=== PATIENT | male | born 1960 | race Caucasian/White ===

== ENCOUNTER → 2021-01-12 08:08 | Outpatient (CLI) | payer BC, SELFPAY ==
[2021-01-12] MEDS: COVID-19 VACC #1, MRNA(MOD) 100 MCG/0.5 ML VIAL IM (08:20)
== END ==
PROVIDERS: Visit Provider Internal Medicine
DX: Z23 Encounter for immunization (principal)
CPT/HCPCS: 0011A; 91301

== ENCOUNTER → 2021-02-09 08:10 | Outpatient (CLI) | payer OTHER, SELFPAY ==
[2021-02-09] MEDS: COVID-19 VACC #2, MRNA(MOD) 100 MCG/0.5 ML VIAL IM (08:16)
== END ==
PROVIDERS: Visit Provider Internal Medicine
DX: Z23 Encounter for immunization (principal)
CPT/HCPCS: 0012A; 91301

== ENCOUNTER → 2022-12-29 10:11 | Outpatient (CLI) | payer OTHER, SELFPAY ==
[2022-12-29 13:33] LABS: Creatinine Urine Random 55.2 mg/dL
[2022-12-29 13:44] LABS: Alanine Aminotransferase 37 IU/L (<50); Albumin 4.5 g/dL (3.5-5.0); Albumin Globulin Ratio 1.5 (1.0-2.8); Alkaline Phosphatase 66 U/L (38-126); Aspartate Aminotransferase 30 IU/L (17-59); Bilirubin Total 0.8 mg/dL (0.2-1.3); Blood Urea Nitrogen 15 mg/dL (9-20); Calcium 9.2 mg/dL (8.4-10.2); Carbon Dioxide 30 mmol/L (22-32); Chloride 94 mmol/L (98-107); Cholesterol 213 mg/dL (140-199); Estimated Glomerular Filt Rate > 60 mL/min (>60); Glucose 83 mg/dL (80-110); HDL Cholesterol 56 mg/dL (40-60); HEMOLYSIS < 15 (0-50); LDL Cholesterol Calculated 131 mg/dL (<100); Potassium 3.8 mmol/L (3.4-5.1); Sodium 134 mmol/L (137-145); Total Protein 7.5 g/dL (6.3-8.2); Triglycerides 130 mg/dL (35-150)
[2022-12-29 14:08] LABS: Prostate Specific Antigen Scrn 1.21 ng/mL (0.1-4.0)
[2022-12-29 14:16] LABS: Microalbumin Urine Random < 0.6 mg/dL (0-1.6)
== END ==
PROVIDERS: PCP Family Medicine; Referring Provider Family Medicine; Visit Provider Family Medicine
DX: R03.0 Elevated blood-pressure reading, without diagnosis of hypertension (principal); Z00.00 Encounter for general adult medical examination without abnormal findings; Z12.5 Encounter for screening for malignant neoplasm of prostate
CPT/HCPCS: 36415; 80053; 80061; 82043; 82570; G0103

== ENCOUNTER 2023-02-13 10:39 | Day surgery (SDC) | payer OTHER, SELFPAY ==
--- NOTE | 2023-02-13 | PATH_ITS ---
[facility] Accession Number: [id number] No. of containers..02 Tissue . 01 Material submitted: . PART A: colon - TRANSVERSE POLYP PART B: rectum - RECTAL POLYP . 01 Diagnosis: A. Transverse Colon, Polyp, Biopsy: Tubular adenoma. . B. Rectum, Polyp, Biopsy: Tubular adenoma. MRV 02/20/2023 1520 Local . 01 Electronically signed: . Erin Klein MD, Pathologist NPI- [id number] . 01 Gross description: . Part A: TRANSVERSE POLYP: Received in formalin is 1 fragment(s) of alvarez, soft tissue measuring 0.3 x 0.3 x 0.3 cm submitted entirely in 1 cassette(s) Part B: RECTAL POLYP: Received in formalin is 1 fragment(s) of alvarez, soft tissue measuring 0.4 x 0.3 x 0.2 cm submitted entirely in 1 cassette(s) /MADELAINE 02/15/2023 2258 Local . 01 Pathologist provided ICD-10: D12.3, D12.8 . 01 CPT . 358378, [id number] Specimen Comment: A courtesy copy of this report has been sent to [phone] Performed at: 01 [facility] [address] [place] [address] [address] [facility], [place], [place] [id number] MD Kang Gonzalez MD Phone: [phone]
[2023-02-13] MEDS: LACTATED RINGERS 1,000 ML 200 ML IV (12:38)
[2023-02-13 12:41] VITALS: BP 129/76; PULSE 177; RESP 18; TEMP 36.1; O2SAT 98; BMI 22.8
--- NOTE | 2023-02-13 13:32 | PM.HP.1 ---
History of Present Illness History of Present Illness Date Patient Seen: 02/13/23 Time Patient Seen: 13:32 Chief complaint: Colonoscopy Narrative: The patient presents for colorectal screening. They have never had any previous examination for such. No personal or family history of colon cancer. On further history denies any recent gastrointestinal symptoms. No nausea, vomiting, abdominal pain, loss of appetite, unexplained weight loss, change in bowel habits, or blood per rectum. PFSH Medical History (Updated 12/27/22 @ 14:47 by Gaby Mancini DO) Wears glasses Surgical History (Updated 12/25/22 @ 19:55 by Aviva Ojeda) Anesthesia History of knee surgery (~1974) [facility] [place] teeth removed (~1980) Family History (Updated 12/25/22 @ 19:56 by Aviva Ojeda) Father History of heart disease Mother Diabetes mellitus Social History household members: spouse and other Smoking Status: Former smoker Tobacco: How many years used: 10 second hand exposure: No alcohol intake: current substance use type: does not use Meds Home Medications and Allergies Home Medications Medication Instructions Recorded Confirmed Type multivitamin 1 tab PO DAILY 12/27/22 12/27/22 History Allergies Allergy/AdvReac Type Severity Reaction Status Date / Time No Known Drug Allergies Allergy Verified 02/13/23 13:05 Exam Vital Signs (past 8 hours): - 02/13/23 12:41 Temperature 97 F L Pulse Rate 177 H Respiratory Rate 18 Blood Pressure 129/76 Pulse Oximetry 98 Oxygen Delivery Method Room Air Oxygen Delivery Method Room Air Narrative Exam Narrative: General adult man alert oriented no acute distress Assessment & Plan Assessment & Plan narrative: The patient requires colorectal screening and colonoscopy is recommended. Technical details were discussed. Risks, benefits, alternatives explained. Risks including but not limited to myocardial infarction, aspiration, bleeding, pain, missed lesion, incomplete examination, need for further radiographic studies, colonic perforation, and need for major abdominal surgery were discussed. All questions were answered to their satisfaction, and they are in agreement with this plan.
[2023-02-13 13:59] VITALS: BP 96/70; PULSE 64; RESP 12; TEMP 36.1; O2SAT 94
--- NOTE | 2023-02-13 14:00 | PM.OP.COLON ---
Operative Date/Time/Diagnoses Date of procedure: 02/13/23 Time of procedure: 14:00 Pre-op diagnosis: Colorectal screening Post-op diagnosis: other (Colonic polyps x2) Procedure & Clinicians Study performed: Colonoscopy Same procedure as scheduled: Yes Indications: Colorectal screening Surgeon: Parth Madrigal Procedure Notes Procedure in detail: The history and physical was performed/updated and the patient is ASA class is 2. The procedure was discussed in detail with the patient. Potential risks complications including infection, bleeding, missed diagnosis, perforation, need for surgery, and were explained. Their questions were answered and informed consent was obtained. Patient was brought to the procedure room and placed standard monitoring equipment. The patient's vital signs were monitored continuously throughout the entire procedure. Prior to starting time-out was performed. The patient was placed in the left lateral recumbent position. Procedural sedation was administered by anesthesia. Examination began with a thorough inspection of the perianal area there was no evidence of fissures, fistulae, external hemorrhoids or cutaneous malignancy. The colonoscopy scope was then placed into the anal canal and was advanced to the cecum, which was identified by the ileocecal valve, the appendiceal orifice and the confluence of the taenia. The scope was then slowly withdrawn examining colon thoroughly in all directions, irrigating it of any residual stool. Within the transverse colon there was a 5 mm flat polyp which was removed with biopsy forceps. In the proximal rectum 3 mm pedunculated polyp removed with forceps. The colon was otherwise unremarkable. The patient tolerated the procedure well. They will be discharged once criteria are met. The prep was of good/excellent quality. The withdrawl time was10 minutes. Specimen(s): other (Transverse and rectal polyps) Impression: Colonic polyps x2 Post-procedure Recommendations: High fiber diet Plan for aftercare: Follow-up is dependent on pathology findings Disposition: same day surgery
[2023-02-13 14:01] VITALS: BP 96/70; PULSE 63; RESP 18; O2SAT 94
[2023-02-13 14:11] VITALS: BP 103/77; PULSE 66; RESP 12; TEMP 37; O2SAT 96
[2023-02-13 14:13] VITALS: BP 101/74; PULSE 69; RESP 15; TEMP 36.9; O2SAT 96
== END 2023-02-13 14:31 | disposition home or self-care (01) ==
PROVIDERS: PCP Family Medicine; Referring Provider Surgery; Visit Provider Surgery
PROC: 0DJD8ZZ Inspection of Lower Intestinal Tract, Via Natural or Artificial Opening Endoscopic (ICD-10-PCS; CPT 45378; principal; 2023-02-13 11:45)
DX: Z12.11 Encounter for screening for malignant neoplasm of colon (principal); D12.3 Benign neoplasm of transverse colon; D12.8 Benign neoplasm of rectum
CPT/HCPCS: 45380; J2704

== ENCOUNTER → 2025-07-14 16:17 | Outpatient (CLI) | payer MEDICARE, SELFPAY ==
--- NOTE | 2025-07-14 16:20 | DI.RAD.S_ITS ---
PROCEDURE: XR CHEST 2V INDICATIONS: r/o pneumonia, nodule TECHNIQUE: 2 views of the chest were acquired. COMPARISON: None. FINDINGS: Heart, mediastinum and pulmonary vascular: Heart is normal in size and configuration. Mediastinum is unremarkable. Pulmonary vascular is normal. Lungs: Bronchi or asthma noted. Possible infiltrate right middle lobe Pleural spaces: Normal-no effusions or pneumothorax. Bones and soft tissues: Normal IMPRESSION: Possible right middle lobe infiltrate developing. Bronchitis or asthma Dictated by: Richardson Remy M.D. on 07/15/2025 at 10:50 Approved by: Richardson Remy M.D. on 07/15/2025 at 10:51
== END ==
PROVIDERS: PCP Family Medicine; Referring Provider Family Medicine; Visit Provider Family Medicine
DX: R05.9 Cough, unspecified (principal)
CPT/HCPCS: 71046

== ENCOUNTER → 2025-08-05 12:28 | Outpatient (CLI) | payer MEDICARE, SELFPAY ==
--- NOTE | 2025-08-05 12:30 | DI.RAD.S_ITS ---
PROCEDURE: XR CHEST 2V INDICATIONS: recheck infiltrate TECHNIQUE: 2 views of the chest were acquired. COMPARISON: [facility], CR, XR CHEST 2V, 07/14/2025, 16:14. FINDINGS: Surgical changes and devices: None. Lungs and pleura: Lungs are clear. No pleural effusions or pneumothorax. Mediastinum: Mediastinal contours are normal. Heart size is normal. Bones and chest wall: No suspicious bony abnormalities. Soft tissues appear unremarkable. IMPRESSION: No acute cardiopulmonary abnormality is seen. Dictated by: Lamine Aviles M.D. on 08/05/2025 at 20:44 Approved by: Lamine Aviles M.D. on 08/05/2025 at 20:44
== END ==
PROVIDERS: PCP Family Medicine; Referring Provider Family Medicine; Visit Provider Family Medicine
DX: R05.9 Cough, unspecified (principal); R93.89 Abnormal findings on diagnostic imaging of other specified body structures
CPT/HCPCS: 71046

== ENCOUNTER 2025-08-17 20:29 | Observation (INO) | payer MEDICARE, SELFPAY ==
[2025-08-17] VITALS (12 sets, daily range): BP systolic 91–169; BP diastolic 60–99; PULSE 83–110; RESP 14–30; TEMP 36.6; O2SAT 85–94; BMI 22.1
[2025-08-17] MEDS: ALBUTEROL/IPRATROPIUM 3 ML AMPUL 6 ML INH (21:00)
--- NOTE | 2025-08-17 21:04 | DI.RAD.S_ITS ---
PROCEDURE: XR CHEST 1V
--- NOTE | 2025-08-17 21:04 | ED_ITS ---
HPI - General Adult
--- NOTE | 2025-08-17 21:04 | ED.GENADULT ---
HPI - General Adult <Aileen Walker MD - Last Filed: 08/17/25 23:49> General Chief complaint: Shortness of Breath/Dyspnea Stated complaint: SOB Time Seen by Provider: 08/17/25 20:50 Source: patient History of Present Illness HPI narrative: 65-year-old gentleman with acute onset dyspnea 2 hours prior to arrival. I said it started with a cough, on arrival he is tripoding, sensory at 85% on room air, he has retractions and accessory muscle use. He is not complaining of pain. He has never had such severe symptoms. He has a chronic cough and has recently been prescribed albuterol but does not carry a diagnosis of significant asthma or COPD. No known coronary disease. No significant risk factors for pulmonary emboli. He does not describe significant fevers, palpitations, abdominal pain, nausea vomiting or diarrhea Related Data Home Medications ?Medication ?Instructions ?Recorded ?Confirmed multivitamin 1 tab PO DAILY 12/27/22 07/14/25 Previous Rx's ?Medication ?Instructions ?Recorded albuterol sulfate 90 mcg/actuation 2 puff inhalation Q4-6H PRN 07/14/25 aerosol inhaler shortness of breath or wheezing #8.5 grams benzonatate 200 mg capsule 200 mg PO BID PRN cough #30 caps 07/14/25 Allergies Allergy/AdvReac Type Severity Reaction Status Date / Time No Known Drug Allergies Allergy Verified 08/17/25 20:39 Review of Systems <Aileen Walker MD - Last Filed: 08/17/25 23:49> Review of Systems Narrative: Pertinent positive and negative findings as per HPI Patient History <Aileen Walker MD - Last Filed: 08/17/25 23:49> Medical History (Updated 08/18/25 @ 01:44 by Paulette Kang DO) Wears glasses Surgical History (Updated 12/25/22 @ 19:55 by Aviva Ojeda) Anesthesia [place] teeth removed (~1980) History of knee surgery (~1974) Family History (Updated 12/25/22 @ 19:56 by Aviva Ojeda) Father History of heart disease Mother Diabetes mellitus Social History household members: spouse and other Smoking Status: Current some day smoker Tobacco: How many years used: 10 second hand exposure: No alcohol intake: current substance use type: does not use Smoking Status: Current some day smoker tobacco type: cigarettes alcohol intake frequency: holidays/special occasions only Exam <Aileen Walker MD - Last Filed: 08/17/25 23:49> Initial Vital Signs Initial Vital Signs: Vital Signs Temperature 97.9 F 08/17/25 20:32 Pulse Rate 110 H 08/17/25 20:32 Respiratory Rate 20 08/17/25 20:32 Blood Pressure 144/90 H 08/17/25 20:32 Pulse Oximetry 85 L 08/17/25 20:32 Oxygen Delivery Method Room Air 08/17/25 20:32 General: Healthy appearing, moderate respiratory distress, able to speak in full sentences once he is on 3 L of oxygen HEENT: Dry mucous membranes, normal sclera with reactive pupils, Neck: No JVD, supple Respiratory: Lungs with diffuse wheeze in all lung trejo, poor overall air movement. We will need to reassess after nebulizers for rhonchi Cardiac: Tachycardic without murmurs Abdomen: Soft, nontender, no rebound or guarding, no flank pain Skin: Warm and dry, no rashes Neurologic: Grossly neurologically intact with no obvious asymmetries or abnormalities Extremities: No trauma, no lower extremity edema Psych: Cooperative, appropriate insight and affect <Paulette Kang DO - Last Filed: 08/18/25 02:00> Initial Vital Signs Initial Vital Signs: Vital Signs Temperature 97.9 F 08/17/25 20:32 Pulse Rate 110 H 08/17/25 20:32 Respiratory Rate 20 08/17/25 20:32 Blood Pressure 144/90 H 08/17/25 20:32 Pulse Oximetry 85 L 08/17/25 20:32 Oxygen Delivery Method Room Air 08/17/25 20:32 Course <Aileen Walker MD - Last Filed: 08/17/25 23:49> Orders Ordered: ED Orders 08/17/25 20:45 Complete Blood Count AUTO DIFF Stat Comprehensive Metabolic Panel Stat D Dimer Stat Magnesium Stat NT-proBNP (BNP-Adult 18+) Stat Troponin I Stat 08/17/25 21:04 XR chest 1V Stat EKG-12 Lead Stat 08/17/25 23:00 Troponin I Stat 08/17/25 23:33 CT angio chest PE protocol Stat 08/18/25 00:40 Respiratory Panel (Film Array) Stat 08/19/25 06:00 Basic Metabolic Panel DAILY Complete Blood Count AUTO DIFF DAILY Acetaminophen (Acetaminophen 325 Mg Tablet) 650 mg PO Q6H PRN PRN Reason: Fever/Mild Pain (1-3) Albuterol/Ipratropium (Albuterol/Ipratropium 3 Ml Ampul) 3 ml INH RTQ6HR PRN PRN Reason: Shortness Of Breath Sodium Chloride (Normal Saline 0.9%) 1,000 mls @ 150 mls/hr IV CONT CHARLEY Last Admin: 08/18/25 00:37 Dose: 150 mls/hr Documented By: STELLA Azithromycin 500 mg/ Dextrose 250 mls @ 250 mls/hr IV Q24H CHARLEY Ceftriaxone Sodium 1,000 mg/ (Sodium Chloride) 100 mls @ 200 mls/hr IV Q24H CHARLEY Naloxone HCl (Naloxone 0.4 Mg/Ml Vial) 0.2 mg IV Q2MIN PRN PRN Reason: Opiate Reversal Ondansetron HCl (Ondansetron 4 Mg/2 Ml Inj) 4 mg IV Q8HR PRN PRN Reason: Nausea And Vomiting Prednisone (Prednisone 20 Mg Tablet) 40 mg PO DAILY CHARLEY Discontinued Medications Albuterol/Ipratropium (Albuterol/Ipratropium 3 Ml Ampul) 6 ml INH NOW ONE Stop: 08/17/25 20:57 Last Admin: 08/17/25 21:00 Dose: 6 ml Documented By: CHARLES Sodium Chloride (Normal Saline 0.9%) 1,000 mls @ 1,000 mls/hr IV BOLUS ONE Stop: 08/17/25 22:02 Last Infusion: 08/17/25 22:15 Dose: Infused Documented By: Admin: 08/17/25 21:12 Dose: 1,000 mls/hr Documented By: JEROD Magnesium Sulfate (Magnesium Sulfate) 2 gm in 50 mls @ 150 mls/hr IV NOW ONE Stop: 08/17/25 21:22 Last Infusion: 08/17/25 22:16 Dose: Infused Documented By: JEROD Co-signed By: STELLA Admin: 08/17/25 21:08 Dose: 150 mls/hr Documented By: JEROD Co-signed By: LOUIE Ceftriaxone Sodium 1,000 mg/ (Sodium Chloride) 100 mls @ 200 mls/hr IV NOW ONE Stop: 08/18/25 01:11 Azithromycin 500 mg/ Dextrose 250 mls @ 250 mls/hr IV NOW ONE Stop: 08/18/25 01:11 Methylprednisolone (Methylprednisolone Succ 125 Mg/2 Ml Vial) 125 mg IV NOW ONE Stop: 08/17/25 21:04 Last Admin: 08/17/25 21:11 Dose: 125 mg Documented By: JEROD Vital Signs Vital signs: Vital Signs - 8 hr 08/17/25 20:32 08/17/25 20:48 08/17/25 20:50 Temperature 97.9 F Pulse Rate 110 H 102 H Respiratory Rate 20 Blood Pressure 144/90 H 161/99 H Pulse Oximetry 85 L 89 L Oxygen Delivery Method Room Air Nasal Cannula Oxygen Flow Rate 3 Fraction of Inspired Oxygen 08/17/25 20:50 08/17/25 21:00 08/17/25 21:00 Temperature Pulse Rate 100 H 103 H Respiratory Rate 30 H 30 H Blood Pressure 169/92 H Pulse Oximetry 91 93 Oxygen Delivery Method Nasal Cannula Oxygen Flow Rate 3 Fraction of Inspired Oxygen 08/17/25 21:02 08/17/25 21:30 08/17/25 21:31 Temperature Pulse Rate 101 H 90 92 H Respiratory Rate 20 16 Blood Pressure Pulse Oximetry 93 94 94 Oxygen Delivery Method Nasal Cannula Oxygen Flow Rate 3 Fraction of Inspired Oxygen 32 08/17/25 21:31 08/17/25 22:00 08/17/25 22:00 Temperature Pulse Rate 85 Respiratory Rate 14 Blood Pressure 120/66 133/73 Pulse Oximetry 94 Oxygen Delivery Method Oxygen Flow Rate Fraction of Inspired Oxygen 08/17/25 22:30 08/17/25 22:30 08/17/25 23:00 Temperature Pulse Rate 83 89 Respiratory Rate 18 Blood Pressure 113/67 Pulse Oximetry 92 91 Oxygen Delivery Method Nasal Cannula Oxygen Flow Rate 1 Fraction of Inspired Oxygen 08/17/25 23:00 08/17/25 23:30 08/17/25 23:30 Temperature Pulse Rate 83 Respiratory Rate Blood Pressure 118/75 91/60 Pulse Oximetry 93 Oxygen Delivery Method Oxygen Flow Rate Fraction of Inspired Oxygen 08/17/25 23:35 08/17/25 23:35 Temperature Pulse Rate 90 Respiratory Rate 22 Blood Pressure 97/63 Pulse Oximetry 92 Oxygen Delivery Method Nasal Cannula Oxygen Flow Rate 1 Fraction of Inspired Oxygen <Paulette Kang DO - Last Filed: 08/18/25 02:00> Orders Ordered: ED Orders 08/17/25 20:45 Complete Blood Count AUTO DIFF Stat Comprehensive Metabolic Panel Stat D Dimer Stat Magnesium Stat NT-proBNP (BNP-Adult 18+) Stat Troponin I Stat 08/17/25 21:04 XR chest 1V Stat EKG-12 Lead Stat 08/17/25 23:00 Troponin I Stat 08/17/25 23:33 CT angio chest PE protocol Stat 08/18/25 00:40 Respiratory Panel (Film Array) Stat 08/19/25 06:00 Basic Metabolic Panel DAILY Complete Blood Count AUTO DIFF DAILY Acetaminophen (Acetaminophen 325 Mg Tablet) 650 mg PO Q6H PRN PRN Reason: Fever/Mild Pain (1-3) Albuterol/Ipratropium (Albuterol/Ipratropium 3 Ml Ampul) 3 ml INH RTQ6HR PRN PRN Reason: Shortness Of Breath Sodium Chloride (Normal Saline 0.9%) 1,000 mls @ 150 mls/hr IV CONT CHARLEY Last Admin: 08/18/25 00:37 Dose: 150 mls/hr Documented By: STELLA Azithromycin 500 mg/ Dextrose 250 mls @ 250 mls/hr IV Q24H CHARLEY Ceftriaxone Sodium 1,000 mg/ (Sodium Chloride) 100 mls @ 200 mls/hr IV Q24H CHARLEY Naloxone HCl (Naloxone 0.4 Mg/Ml Vial) 0.2 mg IV Q2MIN PRN PRN Reason: Opiate Reversal Ondansetron HCl (Ondansetron 4 Mg/2 Ml Inj) 4 mg IV Q8HR PRN PRN Reason: Nausea And Vomiting Prednisone (Prednisone 20 Mg Tablet) 40 mg PO DAILY CHARLEY Discontinued Medications Albuterol/Ipratropium (Albuterol/Ipratropium 3 Ml Ampul) 6 ml INH NOW ONE Stop: 08/17/25 20:57 Last Admin: 08/17/25 21:00 Dose: 6 ml Documented By: CHARLES Sodium Chloride (Normal Saline 0.9%) 1,000 mls @ 1,000 mls/hr IV BOLUS ONE Stop: 08/17/25 22:02 Last Infusion: 08/17/25 22:15 Dose: Infused Documented By: Admin: 08/17/25 21:12 Dose: 1,000 mls/hr Documented By: JEROD Magnesium Sulfate (Magnesium Sulfate) 2 gm in 50 mls @ 150 mls/hr IV NOW ONE Stop: 08/17/25 21:22 Last Infusion: 08/17/25 22:16 Dose: Infused Documented By: JEROD Co-signed By: STELLA Admin: 08/17/25 21:08 Dose: 150 mls/hr Documented By: JEROD Co-signed By: LOUIE Ceftriaxone Sodium 1,000 mg/ (Sodium Chloride) 100 mls @ 200 mls/hr IV NOW ONE Stop: 08/18/25 01:11 Azithromycin 500 mg/ Dextrose 250 mls @ 250 mls/hr IV NOW ONE Stop: 08/18/25 01:11 Methylprednisolone (Methylprednisolone Succ 125 Mg/2 Ml Vial) 125 mg IV NOW ONE Stop: 08/17/25 21:04 Last Admin: 08/17/25 21:11 Dose: 125 mg Documented By: JEROD Vital Signs Vital signs: Vital Signs - 8 hr 08/17/25 20:32 08/17/25 20:48 08/17/25 20:50 Temperature 97.9 F Pulse Rate 110 H 102 H Respiratory Rate 20 Blood Pressure 144/90 H 161/99 H Pulse Oximetry 85 L 89 L Oxygen Delivery Method Room Air Nasal Cannula Oxygen Flow Rate 3 Fraction of Inspired Oxygen 08/17/25 20:50 08/17/25 21:00 08/17/25 21:00 Temperature Pulse Rate 100 H 103 H Respiratory Rate 30 H 30 H Blood Pressure 169/92 H Pulse Oximetry 91 93 Oxygen Delivery Method Nasal Cannula Oxygen Flow Rate 3 Fraction of Inspired Oxygen 08/17/25 21:02 08/17/25 21:30 08/17/25 21:31 Temperature Pulse Rate 101 H 90 92 H Respiratory Rate 20 16 Blood Pressure Pulse Oximetry 93 94 94 Oxygen Delivery Method Nasal Cannula Oxygen Flow Rate 3 Fraction of Inspired Oxygen 32 08/17/25 21:31 08/17/25 22:00 08/17/25 22:00 Temperature Pulse Rate 85 Respiratory Rate 14 Blood Pressure 120/66 133/73 Pulse Oximetry 94 Oxygen Delivery Method Oxygen Flow Rate Fraction of Inspired Oxygen 08/17/25 22:30 08/17/25 22:30 08/17/25 23:00 Temperature Pulse Rate 83 89 Respiratory Rate 18 Blood Pressure 113/67 Pulse Oximetry 92 91 Oxygen Delivery Method Nasal Cannula Oxygen Flow Rate 1 Fraction of Inspired Oxygen 08/17/25 23:00 08/17/25 23:30 08/17/25 23:30 Temperature Pulse Rate 83 Respiratory Rate Blood Pressure 118/75 91/60 Pulse Oximetry 93 Oxygen Delivery Method Oxygen Flow Rate Fraction of Inspired Oxygen 08/17/25 23:35 08/17/25 23:35 Temperature Pulse Rate 90 Respiratory Rate 22 Blood Pressure 97/63 Pulse Oximetry 92 Oxygen Delivery Method Nasal Cannula Oxygen Flow Rate 1 Fraction of Inspired Oxygen Medical Decision Making <Aileen Walker MD - Last Filed: 08/17/25 23:49> Lab Data 08/17/25 20:45 08/17/25 20:45 Labs: Lab Results 08/17/25 08/17/25 08/18/25 Range/Units 20:45 23:00 00:40 WBC 16.4 H (4.5-11.0) X10^3/uL RBC 5.43 (4.5-5.9) X10^6/uL Hgb 16.6 (13.5-17.5) g/dL Hct 47.3 (41-53) % MCV 87.1 (80-100) fL MCH 30.6 (26-34) PG MCHC 35.2 (30-36) % RDW 13.4 (11.6-14.8) % Plt Count 325 (150-400) X10^3/uL Neut % (Auto) 79.5 H (50-75) % Lymph % (Auto) 10.0 L (25-40) % [place] % (Auto) 7.3 (3-14) % Eos % (Auto) 2.5 (2-4) % Baso % (Auto) 0.7 (0-2) % Neut # (Auto) 17446 H (3316-3096) /uL Lymph # (Auto) 1600 (7684-2111) /uL [place] # (Auto) 1200 H (0-900) /uL Eos # (Auto) 400 (0-450) /uL Baso # (Auto) 100 (0-100) /uL D-Dimer 644 H (<500) ng/ml Sodium 132 L (137-145) mmol/L Potassium 3.5 (3.4-5.1) mmol/L Chloride 92 L (98-107) mmol/L Carbon Dioxide 31 (22-32) mmol/L BUN 20 (9-20) mg/dL Creatinine 0.89 (0.66-1.25) mg/dL Estimated GFR > 60 (>60) mL/min BUN/Creatinine Ratio 22.5 H (6-22) Glucose 187 H (70-99) mg/dL Calcium 9.2 (8.4-10.2) mg/dL Magnesium 2.2 (1.6-2.3) mg/dL Total Bilirubin 0.5 (0.2-1.3) mg/dL AST 29 (17-59) IU/L ALT 26 (<50) IU/L Alkaline Phosphatase 72 (38-126) U/L Troponin I < 0.012 < 0.012 (0.01-0.034) ng/mL NT-Pro-B Natriuret Pep 85 (<125) pg/mL Total Protein 7.8 (6.3-8.2) g/dL Albumin 4.7 (3.5-5.0) g/dL Globulin 3.1 (1.7-4.1) g/dL Albumin/Globulin Ratio 1.5 (1.0-2.8) Chlamy pneumoniae PCR Not detected (Not Detect) Adenovirus (PCR) Not detected (Not Detect) B. pertussis DNA (PCR) Not detected (Not Detect) B.parapertussis DNA PCR Not detected (Not Detecte) Coronavirus OC43 (PCR) Not detected (Not Detect) Coronavirus HKU1 (PCR) Not detected (Not Detect) Coronavirus 229E (PCR) Not detected (Not Detect) SARS-CoV-2 (PCR) Not detected (Not Detecte) Coronavirus NL63 (PCR) Not detected (Not Detect) Human Metapneumovir PCR Not detected (Not Detect) Influenza Type A (PCR) Not detected (Not Detect) Influenza Type B (PCR) Not detected (Not Detect) M. pneumoniae (PCR) Not detected (Not Detect) Parainfluenza 1 (PCR) Not detected (Not Detect) Parainfluenza 2 (PCR) Not detected (Not Detect) Parainfluenza 3 (PCR) Not detected (Not Detect) Parainfluenza 4 (PCR) Not detected (Not Detect) RSV (PCR) Not detected (Not Detect) Entero/Rhino (PCR) Not detected (Not Detect) MDM Narrative Medical decision making narrative: CC: Acute dyspnea and wheezing Complicating co-morbidities: No prior diagnosis of asthma/COPD, persistent cough over the last number of weeks post viral versus postnasal drip or both Data collected from: patient Medical records reviewed: Recent primary care notes with his cough reviewed Differential considered: Viral etiology, pneumothorax, pulmonary embolism, bacterial pneumonia Exam documented above, pertinent findings include: Tachypneic, hypoxic, tachycardic significant wheeze in all lung trejo, tripoding Lab Test results independently reviewed as above. Pertinent findings: White count is 16.4 79% neutrophils Chemistries show appropriate renal function 1st and 2nd troponins are unremarkable No evidence of congestive heart failure D-dimer is slightly elevated Independently reviewed EKG: Sinus tachycardia at a rate of 93 no acute ischemic changes Imaging studies independently reviewed: Chest x-ray is unremarkable Consultations: Treatments: Fluid, methylprednisolone 125 mg, magnesium sulfate, to DuoNebs Re-evaluations: On re-evaluation patient is doing significantly better notes that he was able to sleep for the 1st time. Blood pressure had been initially elevated and is now trending down. Will administer another L of fluid. He is no longer tripoding is still wheezing in all lung trejo but moderately improved. He do not appreciate rhonchi. Still has quite a bit of sinus congestion. Given his prolonged symptoms and lack of prior pulmonary diagnoses I am concerned that there is more of a diagnosis that we are missing. With shared decision-making we opted to proceed with a respiratory panel, additional fluid and a CT PE study. Care is turned over to Dr. Kang at change of shift. Still with no fever or myalgias I am less concerned with bacterial infection and will hold antibiotics for the time being Discussion: <Paulette Kang, DO - Last Filed: 08/18/25 02:00> Lab Data Labs: Lab Results 08/17/25 08/17/25 08/18/25 Range/Units 20:45 23:00 00:40 WBC 16.4 H (4.5-11.0) X10^3/uL RBC 5.43 (4.5-5.9) X10^6/uL Hgb 16.6 (13.5-17.5) g/dL Hct 47.3 (41-53) % MCV 87.1 (80-100) fL MCH 30.6 (26-34) PG MCHC 35.2 (30-36) % RDW 13.4 (11.6-14.8) % Plt Count 325 (150-400) X10^3/uL Neut % (Auto) 79.5 H (50-75) % Lymph % (Auto) 10.0 L (25-40) % [place] % (Auto) 7.3 (3-14) % Eos % (Auto) 2.5 (2-4) % Baso % (Auto) 0.7 (0-2) % Neut # (Auto) 44843 H (1851-2639) /uL Lymph # (Auto) 1600 (5217-6031) /uL [place] # (Auto) 1200 H (0-900) /uL Eos # (Auto) 400 (0-450) /uL Baso # (Auto) 100 (0-100) /uL D-Dimer 644 H (<500) ng/ml Sodium 132 L (137-145) mmol/L Potassium 3.5 (3.4-5.1) mmol/L Chloride 92 L (98-107) mmol/L Carbon Dioxide 31 (22-32) mmol/L BUN 20 (9-20) mg/dL Creatinine 0.89 (0.66-1.25) mg/dL Estimated GFR > 60 (>60) mL/min BUN/Creatinine Ratio 22.5 H (6-22) Glucose 187 H (70-99) mg/dL Calcium 9.2 (8.4-10.2) mg/dL Magnesium 2.2 (1.6-2.3) mg/dL Total Bilirubin 0.5 (0.2-1.3) mg/dL AST 29 (17-59) IU/L ALT 26 (<50) IU/L Alkaline Phosphatase 72 (38-126) U/L Troponin I < 0.012 < 0.012 (0.01-0.034) ng/mL NT-Pro-B Natriuret Pep 85 (<125) pg/mL Total Protein 7.8 (6.3-8.2) g/dL Albumin 4.7 (3.5-5.0) g/dL Globulin 3.1 (1.7-4.1) g/dL Albumin/Globulin Ratio 1.5 (1.0-2.8) Chlamy pneumoniae PCR Not detected (Not Detect) Adenovirus (PCR) Not detected (Not Detect) B. pertussis DNA (PCR) Not detected (Not Detect) B.parapertussis DNA PCR Not detected (Not Detecte) Coronavirus OC43 (PCR) Not detected (Not Detect) Coronavirus HKU1 (PCR) Not detected (Not Detect) Coronavirus 229E (PCR) Not detected (Not Detect) SARS-CoV-2 (PCR) Not detected (Not Detecte) Coronavirus NL63 (PCR) Not detected (Not Detect) Human Metapneumovir PCR Not detected (Not Detect) Influenza Type A (PCR) Not detected (Not Detect) Influenza Type B (PCR) Not detected (Not Detect) M. pneumoniae (PCR) Not detected (Not Detect) Parainfluenza 1 (PCR) Not detected (Not Detect) Parainfluenza 2 (PCR) Not detected (Not Detect) Parainfluenza 3 (PCR) Not detected (Not Detect) Parainfluenza 4 (PCR) Not detected (Not Detect) RSV (PCR) Not detected (Not Detect) Entero/Rhino (PCR) Not detected (Not Detect) MDM Narrative Medical decision making narrative: CC: Acute dyspnea and wheezing Complicating co-morbidities: No prior diagnosis of asthma/COPD, persistent cough over the last number of weeks post viral versus postnasal drip or both Data collected from: patient Medical records reviewed: Recent primary care notes with his cough reviewed Differential considered: Viral etiology, pneumothorax, pulmonary embolism, bacterial pneumonia Exam documented above, pertinent findings include: Tachypneic, hypoxic, tachycardic significant wheeze in all lung trejo, tripoding Lab Test results independently reviewed as above. Pertinent findings: White count is 16.4 79% neutrophils Chemistries show appropriate renal function 1st and 2nd troponins are unremarkable No evidence of congestive heart failure D-dimer is slightly elevated Independently reviewed EKG: Sinus tachycardia at a rate of 93 no acute ischemic changes Imaging studies independently reviewed: Chest x-ray is unremarkable Consultations: Treatments: Fluid, methylprednisolone 125 mg, magnesium sulfate, to DuoNebs Re-evaluations: On re-evaluation patient is doing significantly better notes that he was able to sleep for the 1st time. Blood pressure had been initially elevated and is now trending down. Will administer another L of fluid. He is no longer tripoding is still wheezing in all lung trejo but moderately improved. He do not appreciate rhonchi. Still has quite a bit of sinus congestion. Given his prolonged symptoms and lack of prior pulmonary diagnoses I am concerned that there is more of a diagnosis that we are missing. With shared decision-making we opted to proceed with a respiratory panel, additional fluid and a CT PE study. Care is turned over to Dr. Kang at change of shift. Still with no fever or myalgias I am less concerned with bacterial infection and will hold antibiotics for the time being Discussion: 08/18/25 Dr. Kang: Patient signed out to myself by Dr. Walker. Patient is seen and evaluated by myself patient had scant wheeze on exam, no work of breathing currently he is speaks in full sentences he notes he feels significantly improved. Blood pressure has been trending down somewhat was receiving an additional L of fluid. He has received DuoNeb, steroids, magnesium and fluids. CTA PE protocol and respiratory panel are pending. Patient's labs have resulted including cardiac enzymes which were negative. CT PE protocol does not show any large clot, some ectasia of the aorta has changes consistent with possible infectious with tree-in-bud nodularity. Respiratory panel is negative. Spoke with Dr. Han @ 0143 with accepts for observation. Patient on recheck @ 0159 continues to have normal speech, no work of breathing, no wheeze on repeat exam. Discussed findings. He is agreeable to staying overnight in the hospital. Did review his CT findings as well as labs. Discharge Plan Departure Patient Disposition: Admitted as Observation Clinical Impression: Pneumonia, Exacerbation of reactive airway disease Admit Date/Time: 08/18/25 01:45 Admit Provider: Brain Han
[2025-08-17] MEDS: MAGNESIUM SULFATE 2 GM/50 ML PIGGYBACK IV (21:08)
[2025-08-17 21:11] LABS: Add Manual Diff / Slide Review NO; Hematocrit 47.3 % (41-53); Hemoglobin 16.6 g/dL (13.5-17.5); Lymphocytes Absolute Auto 1600 /uL (1100-4500); Mean Corpuscular HGB Conc 35.2 % (30-36); Mean Corpuscular Hemoglobin 30.6 PG (26-34); Mean Corpuscular Volume 87.1 fL (80-100); Platelet Count 325 X10^3/uL (150-400)
[2025-08-17] MEDS: methylPREDNISolone succ 125 MG/2 ML VIAL IV (21:11)
[2025-08-17] MEDS: SODIUM CHLORIDE 0.9% 1,000 ML 1000 ML IV (21:12)
--- NOTE | 2025-08-17 21:22 | EKG_ITS ---
[facility]
[2025-08-17 21:27] LABS: Alanine Aminotransferase 26 IU/L (<50); Albumin 4.7 g/dL (3.5-5.0); Albumin Globulin Ratio 1.5 (1.0-2.8); Alkaline Phosphatase 72 U/L (38-126); Blood Urea Nitrogen 20 mg/dL (9-20); Calcium 9.2 mg/dL (8.4-10.2); Carbon Dioxide 31 mmol/L (22-32); Chloride 92 mmol/L (98-107); Estimated Glomerular Filt Rate > 60 mL/min (>60); Globulin 3.1 g/dL (1.7-4.1); Glucose 187 mg/dL (70-99); HEMOLYSIS 24 (0-50); Magnesium 2.2 mg/dL (1.6-2.3); Potassium 3.5 mmol/L (3.4-5.1); Sodium 132 mmol/L (137-145); Total Protein 7.8 g/dL (6.3-8.2)
[2025-08-17 21:35] LABS: NT-proBNP (BNP-Adult 18+) 85 pg/mL (<125)
[2025-08-17 21:38] LABS: Troponin I < 0.012 ng/mL (0.01-0.034)
[2025-08-17 23:28] LABS: Troponin I < 0.012 ng/mL (0.01-0.034)
--- NOTE | 2025-08-17 23:33 | DI.CT.S_ITS ---
PROCEDURE: CT ANGIO CHEST PE PROTOCOL
--- NOTE | 2025-08-17 23:50 | PC.NURSE ---
Pt assigned to Nba Vazquez RN by BROCK Del Rosario
[2025-08-18] VITALS (11 sets, daily range): BP systolic 100–122; BP diastolic 60–72; PULSE 77–88; RESP 10–19; TEMP 36.7; O2SAT 92–95; BMI 22.1
[2025-08-18] MEDS: SODIUM CHLORIDE 0.9% 1,000 ML 150 ML IV ×2 (00:37→09:53)
[2025-08-18 01:47] LABS: Coronavirus NL 63 Not Detected (Not Detect); SARS- CoV-2 Not Detected (Not Detecte)
[2025-08-18] MEDS: AZITHROMYCIN 500 MG in DEXTROSE 5% IN WATER 250 ML 250 MG IV (02:46)
--- NOTE | 2025-08-18 04:39 | P.HP_ITS ---
History of Present Illness
--- NOTE | 2025-08-18 04:39 | PM.HP.1 ---
History of Present Illness History of Present Illness Date Patient Seen: 08/18/25 Time Patient Seen: 01:31 Chief complaint: SOB Narrative: 65-year-old male with past medical history of tobacco abuse presents with coughing, shortness of breath and wheezing. Per the patient report, over the few days the patient has had increasing shortness of breath and coughing. His symptoms worsened today and the patient was having some shortness of breath. The patient denies any known history of asthma or COPD but states that he been smoking for more than 20 years. The patient is still actively smoking 2 packs/month. Otherwise the patient denies any fever, chills, nausea, vomiting, diarrhea, chest pain or syncope. In the emergency room, the patient was hemodynamically stable. Labs shows a WBC of 16,000 sodium 132 and glucose of 187. Patient was requiring 2 to 3 L of oxygen per nasal cannula. Troponin negative. CT angio of the chest shows no PE but suggested pneumonia. The patient was given Solu-Medrol, DuoNebs and antibiotics. [facility] Medical History (Updated 08/18/25 @ 01:44 by Paulette Kang DO) Wears glasses Surgical History (Updated 12/25/22 @ 19:55 by Aviva Ojeda) Anesthesia [place] teeth removed (~1980) History of knee surgery (~1974) Family History (Updated 12/25/22 @ 19:56 by Aviva Ojeda) Father History of heart disease Mother Diabetes mellitus Social History household members: significant other and other Smoking Status: Current some day smoker Tobacco: How many years used: 10 second hand exposure: No alcohol intake: current substance use type: does not use Meds Home Medications and Allergies Home Medications ?Medication ?Instructions ?Recorded ?Confirmed ?Type multivitamin 1 tab PO DAILY 12/27/22 07/14/25 History albuterol sulfate 90 mcg/actuation 2 puff inhalation Q4-6H PRN 07/14/25 07/14/25 Rx aerosol inhaler shortness of breath or wheezing #8.5 grams benzonatate 200 mg capsule 200 mg PO BID PRN cough #30 caps 07/14/25 07/14/25 Rx Allergies Allergy/AdvReac Type Severity Reaction Status Date / Time No Known Drug Allergies Allergy Verified 08/17/25 20:39 Review of Systems Review of Systems ROS: Yes All systems reviewed with the patient and are negative except as otherwise documented Exam Vital Signs (past 8 hours): - 08/17/25 20:48 08/17/25 20:50 08/17/25 20:50 Pulse Rate 102 H 100 H Respiratory Rate 30 H Blood Pressure 161/99 H Pulse Oximetry 89 L 91 Oxygen Delivery Method Nasal Cannula Nasal Cannula Oxygen Flow Rate 3 3 Fraction of Inspired Oxygen 08/17/25 21:00 08/17/25 21:00 08/17/25 21:02 Pulse Rate 103 H 101 H Respiratory Rate 30 H 20 Blood Pressure 169/92 H Pulse Oximetry 93 93 Oxygen Delivery Method Nasal Cannula Oxygen Flow Rate 3 Fraction of Inspired Oxygen 32 08/17/25 21:30 08/17/25 21:31 08/17/25 21:31 Pulse Rate 90 92 H Respiratory Rate 16 Blood Pressure 120/66 Pulse Oximetry 94 94 Oxygen Delivery Method Oxygen Flow Rate Fraction of Inspired Oxygen 08/17/25 22:00 08/17/25 22:00 08/17/25 22:30 Pulse Rate 85 83 Respiratory Rate 14 18 Blood Pressure 133/73 Pulse Oximetry 94 92 Oxygen Delivery Method Nasal Cannula Oxygen Flow Rate 1 Fraction of Inspired Oxygen 08/17/25 22:30 08/17/25 23:00 08/17/25 23:00 Pulse Rate 89 Respiratory Rate Blood Pressure 113/67 118/75 Pulse Oximetry 91 Oxygen Delivery Method Oxygen Flow Rate Fraction of Inspired Oxygen 08/17/25 23:30 08/17/25 23:30 08/17/25 23:35 Pulse Rate 83 Respiratory Rate Blood Pressure 91/60 97/63 Pulse Oximetry 93 Oxygen Delivery Method Oxygen Flow Rate Fraction of Inspired Oxygen 08/17/25 23:35 08/18/25 00:00 08/18/25 00:00 Pulse Rate 90 83 Respiratory Rate 22 11 L Blood Pressure 107/66 Pulse Oximetry 92 92 Oxygen Delivery Method Nasal Cannula Nasal Cannula Oxygen Flow Rate 1 1 Fraction of Inspired Oxygen 08/18/25 00:18 08/18/25 00:18 08/18/25 00:30 Pulse Rate 88 83 Respiratory Rate 17 16 Blood Pressure 115/70 Pulse Oximetry 93 92 Oxygen Delivery Method Nasal Cannula Nasal Cannula Oxygen Flow Rate 1 1 Fraction of Inspired Oxygen 08/18/25 00:30 08/18/25 01:00 08/18/25 01:00 Pulse Rate 84 Respiratory Rate 12 Blood Pressure 112/65 108/61 Pulse Oximetry 93 Oxygen Delivery Method Nasal Cannula Oxygen Flow Rate 1 Fraction of Inspired Oxygen 08/18/25 01:30 08/18/25 01:30 08/18/25 02:00 Pulse Rate 80 Respiratory Rate 10 L Blood Pressure 100/60 110/67 Pulse Oximetry 93 Oxygen Delivery Method Nasal Cannula Oxygen Flow Rate 1 Fraction of Inspired Oxygen 08/18/25 02:00 08/18/25 02:30 08/18/25 02:30 Pulse Rate 83 85 Respiratory Rate 13 19 Blood Pressure 104/71 Pulse Oximetry 92 93 Oxygen Delivery Method Nasal Cannula Nasal Cannula Oxygen Flow Rate 1 1 Fraction of Inspired Oxygen 08/18/25 03:00 08/18/25 03:01 08/18/25 03:01 Pulse Rate 80 81 Respiratory Rate 10 L 15 Blood Pressure 119/72 Pulse Oximetry 94 95 Oxygen Delivery Method Nasal Cannula Nasal Cannula Oxygen Flow Rate 1 1 Fraction of Inspired Oxygen Fraction of Inspired Oxygen 32 SaO2/FiO2 Ratio 287 Oxygen Delivery Method Nasal Cannula Oxygen Flow Rate 1 Narrative Exam Narrative: Physical Exam: GENERAL: The patient is not in any acute distressed. Awake and alert. HEENT: Nonicteric sclerae, PERRLA, EOMI. Oropharynx clear. Moist mucous membranes. Conjunctivae appear well perfused. HEART: Regular rate and rhythm without murmurs. No lower extremities edema. LUNGS: Clear to auscultation bilaterally. No wheezing, crackles or rhonchi ABDOMEN: Soft, positive bowel sounds, nontender. SKIN: No rash, no excessive bruising, petechiae, or purpura. NEUROLOGIC: AxO x 3. Cranial nerves II-XII intact without motor/sensory deficit. Objective Labs 08/17/25 20:45 08/17/25 20:45 Labs: Laboratory Results - last 24 hr 08/17/25 08/17/25 08/18/25 20:45 23:00 00:40 WBC 16.4 H RBC 5.43 Hgb 16.6 Hct 47.3 MCV 87.1 MCH 30.6 MCHC 35.2 RDW 13.4 Plt Count 325 Neut % (Auto) 79.5 H Lymph % (Auto) 10.0 L [place] % (Auto) 7.3 Eos % (Auto) 2.5 Baso % (Auto) 0.7 Neut # (Auto) 86274 H Lymph # (Auto) 1600 [place] # (Auto) 1200 H Eos # (Auto) 400 Baso # (Auto) 100 D-Dimer 644 H Sodium 132 L Potassium 3.5 Chloride 92 L Carbon Dioxide 31 BUN 20 Creatinine 0.89 Estimated GFR > 60 BUN/Creatinine Ratio 22.5 H Glucose 187 H Calcium 9.2 Magnesium 2.2 Total Bilirubin 0.5 AST 29 ALT 26 Alkaline Phosphatase 72 Troponin I < 0.012 < 0.012 NT-Pro-B Natriuret Pep 85 Total Protein 7.8 Albumin 4.7 Globulin 3.1 Albumin/Globulin Ratio 1.5 Chlamy pneumoniae PCR Not detected Adenovirus (PCR) Not detected B. pertussis DNA (PCR) Not detected B.parapertussis DNA PCR Not detected Coronavirus OC43 (PCR) Not detected Coronavirus HKU1 (PCR) Not detected Coronavirus 229E (PCR) Not detected SARS-CoV-2 (PCR) Not detected Coronavirus NL63 (PCR) Not detected Human Metapneumovir PCR Not detected Influenza Type A (PCR) Not detected Influenza Type B (PCR) Not detected M. pneumoniae (PCR) Not detected Parainfluenza 1 (PCR) Not detected Parainfluenza 2 (PCR) Not detected Parainfluenza 3 (PCR) Not detected Parainfluenza 4 (PCR) Not detected RSV (PCR) Not detected Entero/Rhino (PCR) Not detected Assessment & Plan Assessment & Plan narrative: Community-acquired pneumonia. Admit the patient to medical telemetry as inpatient. Continue IV ceftriaxone and azithromycin. The patient is not septic at this point. Possible undiagnosed COPD exacerbation. Patient has a extensive history of tobacco abuse but never diagnosed with COPD or asthma. Will continue prednisone for now and DuoNebs. Patient will need formal PFT studies as outpatient Acute respiratory failure with hypoxemia. Patient initially required 2 to 3 L of oxygen but now is on 1 L after treatment. Treat as above and wean down oxygen as able. CT of the chest shows no PE. Tobacco abuse. Patient counseled. Refuse nicotine patch at this time. DVT prophylaxis heparin subcu. CODE STATUS DNR/DNI per the patient's request. Disposition likely home in 2 days - As the provider of this telehealth evaluation, requested by the patient's evaluating physician, I attest that I introduced myself to the patient, provided my credentials and determined that telemedicine via a real-time, 2 way interactive audio and video platform is an appropriate and effective means of providing this service. - I reviewed the patient's chart and had a discussion with the member of the patient's treatment team. - The patient and I mutually agreed with continuation of this evaluation via telemedicine. The patient consented for the telemedicine evaluation. - This virtual encounter was taken place from [place] by Dr. Brain Han. The patient was evaluated at [facility]. The encounter was approximately 35 minutes. The nurse was present during the entire time of the encounter and was able assists with the stethoscope to listen to the patients. Time-Based Coding :: [TOTAL MINUTES] spent with patient and on the chart (including review of chart, obtaining history, exam, reviewing outside data, placing orders, documenting exam and treatment plan, and counseling patient) on [DATE].
[2025-08-18] MEDS: HEPARIN 5,000 UNIT/ML VIAL 5000 UNIT SUBCUT (06:53)
--- NOTE | 2025-08-18 07:47 | P.HP_ITS ---
History of Present Illness
--- NOTE | 2025-08-18 07:47 | PM.HP.1 ---
History of Present Illness History of Present Illness Date Patient Seen: 08/18/25 Chief complaint: SOB Narrative: Summary (night doctor): 65-year-old male with past medical history of tobacco abuse presents with coughing, shortness of breath and wheezing. Per the patient report, over the few days the patient has had increasing shortness of breath and coughing. His symptoms worsened today and the patient was having some shortness of breath. The patient denies any known history of asthma or COPD but states that he been smoking for more than 20 years. The patient is still actively smoking 2 packs/month. Otherwise the patient denies any fever, chills, nausea, vomiting, diarrhea, chest pain or syncope. In the emergency room, the patient was hemodynamically stable. Labs shows a WBC of 16,000 sodium 132 and glucose of 187. Patient was requiring 2 to 3 L of oxygen per nasal cannula. Troponin negative. CT angio of the chest shows no PE but suggested pneumonia. The patient was given Solu-Medrol, DuoNebs and antibiotics. S: He is feeling much better. Less dyspnea and wheezing. No fevers. Off O2. ROS: All else reviewed and otherwise unremarkable except as noted in the history and physical. O: VSS NAD, alert and oriented, fluent speech, calm. Normocephalic skull, EOMI, anicteric sclera, symmetric pupils. Oropharynx unremarkable, no droop. Neck supple, midline trachea, no adenopathy. Lungs clear, normal rate and effort. Increased cough with forced expiration and prolonged expiratory phase. Heart regular, no murmur gallop or rub. Abdomen is soft, non distended and non tender. Extremities are free of edema. Skin is free of rash or lesions. Joints are not swollen or deformed. Judgment appears to be normal. IMAGING: CXR: No acute cardiopulmonary abnormalities or focal consolidation. CTPA: Suboptimal timing of intravenous contrast bolus. No acute pulmonary emboli to the level of the proximal segmental pulmonary arteries. No evidence for acute right-sided heart strain. Moderate lower lobe predominant perihilar and distal airway thickening and numerous scattered peripheral nodular/tree-in-bud opacities. Findings are favored to represent an infectious process likely secondary to mycobacterial/atypical organism. Recommend follow-up CT in 3 months to document resolution of findings. Moderate ectasia of the ascending thoracic aorta measuring up to 4.8 cm in diameter. A/P: 1. Community-acquired pneumonia. 2. COPD exacerbation. Patient has a extensive history of tobacco abuse but never diagnosed with COPD or asthma. 3. Acute respiratory failure with hypoxemia. Patient initially required 2 to 3 L of oxygen but now is on 1 L after treatment. Treat as above and wean down oxygen as able. CT of the chest shows no PE. 4. Tobacco abuse. Patient counseled. Refuse nicotine patch at this time. PLAN: -continue IV antibiotics for cap, ceftriaxone and azithromycin. -treat for COPD exacerbation with steroids and bronchodilators. -he was a 2nd midnight in the hospital, anticipate discharge August 19. DVT prophylaxis heparin subcu. CODE STATUS DNR/DNI per the patient's request. Disposition likely home in 2 days [facility] Medical History Wears glasses Surgical History Anesthesia [place] teeth removed (~1980) History of knee surgery (~1974) Family History Father History of heart disease Mother Diabetes mellitus Social History household members: significant other and other Smoking Status: Current some day smoker Tobacco: How many years used: 10 second hand exposure: No alcohol intake: current substance use type: does not use Meds Home Medications and Allergies Home Medications ?Medication ?Instructions ?Recorded ?Confirmed ?Type multivitamin 1 tab PO DAILY 12/27/22 07/14/25 History albuterol sulfate 90 mcg/actuation 2 puff inhalation Q4-6H PRN 07/14/25 07/14/25 Rx aerosol inhaler shortness of breath or wheezing #8.5 grams benzonatate 200 mg capsule 200 mg PO BID PRN cough #30 caps 07/14/25 07/14/25 Rx cefdinir 300 mg capsule 300 mg PO BID #10 caps 08/18/25 Rx doxycycline hyclate 100 mg capsule 100 mg PO BID #5 caps 08/18/25 Rx prednisone 20 mg tablet 40 mg (2 x 20 mg) PO DAILY #10 tabs 08/18/25 Rx Allergies Allergy/AdvReac Type Severity Reaction Status Date / Time No Known Drug Allergies Allergy Verified 08/17/25 20:39 Exam Vital Signs (past 8 hours): - 08/18/25 00:00 08/18/25 00:00 08/18/25 00:18 Pulse Rate 83 88 Respiratory Rate 11 L 17 Blood Pressure 107/66 Pulse Oximetry 92 93 Oxygen Delivery Method Nasal Cannula Nasal Cannula Oxygen Flow Rate 1 1 08/18/25 00:18 08/18/25 00:30 08/18/25 00:30 Pulse Rate 83 Respiratory Rate 16 Blood Pressure 115/70 112/65 Pulse Oximetry 92 Oxygen Delivery Method Nasal Cannula Oxygen Flow Rate 1 08/18/25 01:00 08/18/25 01:00 08/18/25 01:30 Pulse Rate 84 Respiratory Rate 12 Blood Pressure 108/61 100/60 Pulse Oximetry 93 Oxygen Delivery Method Nasal Cannula Oxygen Flow Rate 1 08/18/25 01:30 08/18/25 02:00 08/18/25 02:00 Pulse Rate 80 83 Respiratory Rate 10 L 13 Blood Pressure 110/67 Pulse Oximetry 93 92 Oxygen Delivery Method Nasal Cannula Nasal Cannula Oxygen Flow Rate 1 1 08/18/25 02:30 08/18/25 02:30 08/18/25 03:00 Pulse Rate 85 80 Respiratory Rate 19 10 L Blood Pressure 104/71 Pulse Oximetry 93 94 Oxygen Delivery Method Nasal Cannula Nasal Cannula Oxygen Flow Rate 1 1 08/18/25 03:01 08/18/25 03:01 08/18/25 04:30 Pulse Rate 81 Respiratory Rate 15 Blood Pressure 119/72 Pulse Oximetry 95 95 Oxygen Delivery Method Nasal Cannula Nasal Cannula Oxygen Flow Rate 1 1 08/18/25 04:30 Pulse Rate Respiratory Rate Blood Pressure Pulse Oximetry Oxygen Delivery Method Nasal Cannula Oxygen Flow Rate Fraction of Inspired Oxygen 32 SaO2/FiO2 Ratio 287 Oxygen Delivery Method Nasal Cannula Oxygen Flow Rate 1 Objective ECG Impression: ntervals [place] Rate: 93 P: 67 VT: 182 QRS: 66 QRSD: 94 T: 48 QT: 376 QTc: 467 Interpretive Statements Normal sinus rhythm Labs 08/17/25 20:45 08/17/25 20:45 Labs: Laboratory Results - last 24 hr 08/17/25 08/17/25 08/18/25 20:45 23:00 00:40 WBC 16.4 H RBC 5.43 Hgb 16.6 Hct 47.3 MCV 87.1 MCH 30.6 MCHC 35.2 RDW 13.4 Plt Count 325 Neut % (Auto) 79.5 H Lymph % (Auto) 10.0 L [place] % (Auto) 7.3 Eos % (Auto) 2.5 Baso % (Auto) 0.7 Neut # (Auto) 32274 H Lymph # (Auto) 1600 [place] # (Auto) 1200 H Eos # (Auto) 400 Baso # (Auto) 100 D-Dimer 644 H Sodium 132 L Potassium 3.5 Chloride 92 L Carbon Dioxide 31 BUN 20 Creatinine 0.89 Estimated GFR > 60 BUN/Creatinine Ratio 22.5 H Glucose 187 H Calcium 9.2 Magnesium 2.2 Total Bilirubin 0.5 AST 29 ALT 26 Alkaline Phosphatase 72 Troponin I < 0.012 < 0.012 NT-Pro-B Natriuret Pep 85 Total Protein 7.8 Albumin 4.7 Globulin 3.1 Albumin/Globulin Ratio 1.5 Chlamy pneumoniae PCR Not detected Adenovirus (PCR) Not detected B. pertussis DNA (PCR) Not detected B.parapertussis DNA PCR Not detected Coronavirus OC43 (PCR) Not detected Coronavirus HKU1 (PCR) Not detected Coronavirus 229E (PCR) Not detected SARS-CoV-2 (PCR) Not detected Coronavirus NL63 (PCR) Not detected Human Metapneumovir PCR Not detected Influenza Type A (PCR) Not detected Influenza Type B (PCR) Not detected M. pneumoniae (PCR) Not detected Parainfluenza 1 (PCR) Not detected Parainfluenza 2 (PCR) Not detected Parainfluenza 3 (PCR) Not detected Parainfluenza 4 (PCR) Not detected RSV (PCR) Not detected Entero/Rhino (PCR) Not detected Assessment & Plan Time-Based Coding :: 35 min spent with patient and on the chart (including review of chart, obtaining history, exam, reviewing outside data, placing orders, documenting exam and treatment plan, and counseling patient) on 08/18. Quality MIPS - Admit I confirm the patient?s Advance Care Plan is present, Code status is documented, Surrogate decision maker is in patient?s record [If Yes, STOP here]: Yes MIPS - Meds 'Current medications' to include all prescriptions, [id number] products, herbals, cannabis/cannabidiol products, and vitamin/mineral/dietary (nutritional) supplements. I have utilized all available resources to obtain, update, or review the patient?s current medications. [If Yes, STOP here]: Yes
--- NOTE | 2025-08-18 10:21 | PC.NURSE ---
Patient independent in room, he is on room air. Up to bathroom independently. He is on NS at 150cc/hr and tolerating this well. He denies pain.
--- NOTE | 2025-08-18 10:51 | P.DS_ITS ---
History of Present Illness
--- NOTE | 2025-08-18 10:51 | PM.DS.1 ---
History of Present Illness History of Present Illness Chief complaint: SOB Narrative: Summary (night doctor): 65-year-old male with past medical history of tobacco abuse presents with coughing, shortness of breath and wheezing. Per the patient report, over the few days the patient has had increasing shortness of breath and coughing. His symptoms worsened today and the patient was having some shortness of breath. The patient denies any known history of asthma or COPD but states that he been smoking for more than 20 years. The patient is still actively smoking 2 packs/month. Otherwise the patient denies any fever, chills, nausea, vomiting, diarrhea, chest pain or syncope. In the emergency room, the patient was hemodynamically stable. Labs shows a WBC of 16,000 sodium 132 and glucose of 187. Patient was requiring 2 to 3 L of oxygen per nasal cannula. Troponin negative. CT angio of the chest shows no PE but suggested pneumonia. The patient was given Solu-Medrol, DuoNebs and antibiotics. Hospital course: He improved with antibiotics, weaned off from oxygen. And was also improved with regard to his dyspnea and wheezing after receiving steroids and bronchodilators. He did note that he has been using bronchodilators somewhat sparingly recently but notes that they do help with his cough and restrained breathing sensation. He was felt to be stable for discharge and he was breathing comfortably off from oxygen. Smoking cessation: Was discussed at length and a plan was constructed. He declined any adjunctive medical therapy. He does not tend to stopped smoking. His quit date will be August 18. IMAGING: CXR: No acute cardiopulmonary abnormalities or focal consolidation. CTPA: Suboptimal timing of intravenous contrast bolus. No acute pulmonary emboli to the level of the proximal segmental pulmonary arteries. No evidence for acute right-sided heart strain. Moderate lower lobe predominant perihilar and distal airway thickening and numerous scattered peripheral nodular/tree-in-bud opacities. Findings are favored to represent an infectious process likely secondary to mycobacterial/atypical organism. Recommend follow-up CT in 3 months to document resolution of findings. Moderate ectasia of the ascending thoracic aorta measuring up to 4.8 cm in diameter. A/P: 1. Community-acquired pneumonia. Improved. 2. COPD exacerbation. Improved. 3. Acute respiratory failure with hypoxemia. Resolved. 4. Tobacco abuse. Patient counseled. He will work on stopping smoking. He was stopped in the past. PLAN: He had a dramatic improvement over the short course of his hospital encounter. He was stable for discharge home on oral antibiotics, oral prednisone of 40 daily for 5 days, and oral steroids. He will follow up with his PCP, Brittnee miller. And discussed consideration of testing for COPD. He likely would benefit from pulmonary function testing and consideration referral to [facility]. [N], the patient has documentation of a left ventricle ejection fracture less than or equal to 40%, or moderately or severely reduced left ventricle systolic function. [N], the patient has a history of heart transplant or left ventricular assist device (LVAD). [N], the patient was prescribed an FRANCISCO inhibitor at discharge or is already being taken. The patient was not prescribed an FRANCISCO-inhibitor because of the following exception: NA. [Y/N], the patient was prescribed Metoprolol succinate, bisoprolol, or carvedilol at discharge. The patient was not prescribed Metoprolol succinate, bisoprolol, or carvedilol at discharge because of the following exception: NA. Discharge Providers Provider Date of admission: 08/18/25 01:45 Discharge Date: 08/18/25 Primary care physician: Gaby Miller DO Discharge provider: Derik Crane MD Summary Hospital Course Discharge Diagnosis: 1. COPD exacerbation. Status at Discharge Cognitive/behavioral status at discharge: oriented Functional status at discharge: independent ambulation Overall status at discharge: patient is progressing back to baseline Time Spent with Patient Time spent: Greater than 30 minutes Exam Vital Signs (past 8 hours): - 08/18/25 03:00 08/18/25 03:01 08/18/25 03:01 Temperature Pulse Rate 80 81 Respiratory Rate 10 L 15 Blood Pressure 119/72 Pulse Oximetry 94 95 Oxygen Delivery Method Nasal Cannula Nasal Cannula Oxygen Flow Rate 1 1 08/18/25 04:30 08/18/25 04:30 08/18/25 08:00 Temperature 98.0 F Pulse Rate 77 Respiratory Rate 16 Blood Pressure 122/69 Pulse Oximetry 95 95 Oxygen Delivery Method Nasal Cannula Nasal Cannula Oxygen Flow Rate 1 0 Fraction of Inspired Oxygen 32 SaO2/FiO2 Ratio 287 Oxygen Delivery Method Nasal Cannula Oxygen Flow Rate 0 Narrative Exam Narrative: Above. Objective Labs 08/17/25 20:45 08/17/25 20:45 Labs: Laboratory Results - last 24 hr 08/17/25 08/17/25 08/18/25 20:45 23:00 00:40 WBC 16.4 H RBC 5.43 Hgb 16.6 Hct 47.3 MCV 87.1 MCH 30.6 MCHC 35.2 RDW 13.4 Plt Count 325 Neut % (Auto) 79.5 H Lymph % (Auto) 10.0 L [place] % (Auto) 7.3 Eos % (Auto) 2.5 Baso % (Auto) 0.7 Neut # (Auto) 39277 H Lymph # (Auto) 1600 [place] # (Auto) 1200 H Eos # (Auto) 400 Baso # (Auto) 100 D-Dimer 644 H Sodium 132 L Potassium 3.5 Chloride 92 L Carbon Dioxide 31 BUN 20 Creatinine 0.89 Estimated GFR > 60 BUN/Creatinine Ratio 22.5 H Glucose 187 H Calcium 9.2 Magnesium 2.2 Total Bilirubin 0.5 AST 29 ALT 26 Alkaline Phosphatase 72 Troponin I < 0.012 < 0.012 NT-Pro-B Natriuret Pep 85 Total Protein 7.8 Albumin 4.7 Globulin 3.1 Albumin/Globulin Ratio 1.5 Chlamy pneumoniae PCR Not detected Adenovirus (PCR) Not detected B. pertussis DNA (PCR) Not detected B.parapertussis DNA PCR Not detected Coronavirus OC43 (PCR) Not detected Coronavirus HKU1 (PCR) Not detected Coronavirus 229E (PCR) Not detected SARS-CoV-2 (PCR) Not detected Coronavirus NL63 (PCR) Not detected Human Metapneumovir PCR Not detected Influenza Type A (PCR) Not detected Influenza Type B (PCR) Not detected M. pneumoniae (PCR) Not detected Parainfluenza 1 (PCR) Not detected Parainfluenza 2 (PCR) Not detected Parainfluenza 3 (PCR) Not detected Parainfluenza 4 (PCR) Not detected RSV (PCR) Not detected Entero/Rhino (PCR) Not detected PFSH Medical History Wears glasses Surgical History Anesthesia [place] teeth removed (~1980) History of knee surgery (~1974) Family History Father History of heart disease Mother Diabetes mellitus Social History household members: significant other and other Smoking Status: Current some day smoker Tobacco: How many years used: 10 second hand exposure: No alcohol intake: current substance use type: does not use Discharge Plan Discharge Plan Patient Disposition: Home Provider Discharge Comment: Stable for discharge home, close follow up with Brittnee miller. Discharge orders & Medications Prescriptions: New prednisone 20 mg Tablet 40 mg PO DAILY Qty: 10 0RF cefdinir 300 mg capsule 300 mg PO BID Qty: 10 0RF doxycycline hyclate 100 mg capsule 100 mg PO BID Qty: 5 0RF Continued benzonatate 200 mg capsule 200 mg PO BID PRN (Reason: cough) Qty: 30 2RF albuterol sulfate 90 mcg/actuation HFA aerosol inhaler 2 puff inhalation Q4-6H PRN (Reason: shortness of breath or wheezing) Qty: 8.5 0RF multivitamin Tablet 1 tab PO DAILY Medication counseling provided by Pharmacist: No Follow up/Referrals: Gaby Miller DO [Primary Care Provider, Medical] Diet/Activity/Treatments Diet: Regular Visit Report/Discharge Packet Instructions: Serious Ways to Stop Smoking, DI for Chronic Obstructive Pulmonary Disease, DI for Pneumonia -- Adult Stand Alone Forms: Patient Portal/API Discharge Data Primary Care Provider: Gaby Miller Attending Provider: Brain Han Admrolando Date/Time: 08/18/25 01:45
--- NOTE | 2025-08-18 12:18 | CM.DANOTE ---
DCP Assessment note pt is a 65yo M admitted with SOB/pneumonia/resp failure. likely COPD exacerbation. 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 per chart, at one point needed 3ltr O2 but now stable on room air. per chart, pt lives indep in [place] with SO. per provider, stable for dc home with OP f/u. per RN, indep in room. no obvious CM needs. P: dc today home with OP f/u. no identified barriers to safe dc home identified at this time. will continue to follow as needed in case any needs should arise JUSTEN Gonzáles Discharge Planning/Care Management CM Discharge Assessment Start: 08/18/25 01:53 Freq: Status: Active Protocol: Document 08/18/25 12:13 (Rec: 08/18/25 12:18 [id number]) Discharge Planning Assessment Assigned Discharge JUSTEN Griffith Dog Behaviorist Provider Gaby Mancini Insurance [employer] [facility] DPOA/Assigned brother Astorg[place] Designee Name Contact Information [phone] Advance Directives? No History Provided By Patient Household Members significant other,other Type of Drives own vehicle transporation used prior to admit Independent with ADL Yes 's Is patient alert and Yes oriented? Discharge Plan Home Referrals Initiated None needed Review Status In Process Please Provide Date 08/18/25 Initial DC Assessment Was Performed Next Review Type Continued Stay Review
--- NOTE | 2025-08-18 13:03 | PC.NURSE ---
Discharge Note Patient A&O, VSS, RA, no complaints of pain/discomfort. Discharge packet reviewed with patient, all questions/concerns addressed. PIV discontinued. Patient able to dress self and pack belongings. 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 Patient taken down via wheelchair to POV.
== END 2025-08-18 13:00 | disposition home or self-care (01) ==
LOC: ED 08-18 01:44 → AC 08-18 01:46 → ICU 08-18 04:05
PROVIDERS: Emergency Medicine; Admitting Provider Internal Medicine; Emergency Provider Emergency Medicine; PCP Family Medicine; Visit Provider Internal Medicine
DX: J18.9 Pneumonia, unspecified organism (principal); J96.01 Acute respiratory failure with hypoxia; R05.3 Chronic cough; F17.210 Nicotine dependence, cigarettes, uncomplicated
CPT/HCPCS: 36415; 71045; 71275; 80053; 83735; 83880; 84484; 85025; 85379; 87633; 93005; 94640; 96361; 96365; 96366; 96367; 96368; 96372; 96375; 99285; G0378; J0696; J1644; J2919; J3475; J7030; J7050; J7060; Q9967

== ENCOUNTER 2025-09-13 21:57 | Inpatient (IN) | payer MEDICARE, SELFPAY ==
[2025-08-18 01:53] VITALS: BMI 22.1
[2025-09-13] VITALS (9 sets, daily range): BP systolic 100–169; BP diastolic 70–102; PULSE 88–108; RESP 10–44; TEMP 37.3; O2SAT 72–98; BMI 22.1
[2025-09-13] MEDS: ALBUTEROL/IPRATROPIUM 3 ML AMPUL INH ×3 (22:16→22:46)
--- NOTE | 2025-09-13 22:25 | ED_ITS ---
HPI - SOB/Dyspnea General Chief Complaint: Shortness of Breath/Dyspnea Stated Complaint: SOB X 45min Time Seen by Provider: 09/13/25 22:10 History of Present Illness HPI Narrative: 65-year-old male with no known pulmonary issue is comes in with an acute onset of dyspnea approximately hour prior to arrival. Started with a cough and upon arrival he is tripoding with an oxygen saturation around 70% along with accessory muscle usage. The symptoms are the most severe symptoms he has ever had. Approximately a month ago the patient was admitted here for pneumonia. He does admit to being a long-time smoker. In the past several months he has cut down smoking to approximately about a pack per month and has stopped completely since his last hospitalization. Related Data Home Medications ?Medication ?Instructions ?Recorded ?Confirmed multivitamin 1 tab PO DAILY 12/27/2205/01 Previous Rx's ?Medication ?Instructions ?Recorded albuterol sulfate 90 mcg/actuation 2 puff inhalation Q 4-6H PRN 08/24/25 aerosol inhaler shortness of breath or wheez ing #8.5 grams Allergies Allergy/AdvReac Type Severity Reaction Status Date / Time No Known Drug Allergies Allergy Verified 09/13/25 22:23 Review of Systems Review of Systems ROS Unobtainable: All systems reviewed & are unremarkable except as noted in HPI and below Patient History Medical History (Updated 09/14/25 @ 06:17 by Carmelo Young MD) Atypical pneumonia (~08/2025) Wears glasses Surgical History Anesthesia [place] teeth removed (~1980) History of knee surgery (~1974) Family History Father History of heart disease Mother Diabetes mellitus Social History household members: significant other and other Smoking Status: Former smoker Tobacco: How many years used: 10 second hand exposure: No alcohol intake: current substance use type: does not use tobacco type: cigarettes alcohol intake frequency: holidays/special occasions only Exam Narrative Exam Narrative: General: Patient appears to be in no acute distress, acting appropriately Head: normocephalic, atraumatic, HEENT: Pupils equal round reactive, eyes tracking well, neck supple, no JVD Heart: regular rate and rhythm, no murmurs, rubs, or gallops heard Lungs: clear to auscultation, no adventitious sounds Abdomen: soft , nontender, nondistended, positive bowel sounds Neurological: no focal neurological signs, moving all extremities well, alert and oriented x3, Psych: good judgment ,good insight, mood is normal. Initial Vital Signs Initial Vital Signs: Vital Signs Pulse Rate 105 H 09/13/25 22:17 Respiratory Rate 28 H 09/13/25 22:17 Pulse Oximetry 92 09/13/25 22:17 Oxygen Delivery Method Non -Rebreather 09/13/25 22:17 Oxygen Flow Rate 15 09/13/25 22:17 Fraction of Inspired Oxygen 100 09/13/25 22:17 Course Orders Ordered: ED Orders 09/13/25 22:28 XR chest 1V Stat 09/13/25 22:30 Complete Blood Count AUTO DIFF Stat Comprehensive Metabolic Panel Stat D Dimer Stat Lactate (Lactic Acid) Stat Lipase Stat Magnesium Stat NT-proBNP (BNP-Adult 18+) Stat PTT Partial Thromboplastin Kevin Stat Prothrombin Time INR Stat Troponin & CK Cardiac Panel Stat 09/13/25 23:26 Respiratory Panel (Film Array) Stat 09/13/25 23:29 CT angio chest PE protocol Stat 09/13/25 23:35 Blood Culture Stat 09/14/25 00:34 Procalcitonin Stat 09/14/25 02:21 BiPAP Ventilatory Support RT PROTOCOL 09/15/25 06:00 Basic Metabolic Panel DAILY Complete Blood Count AUTO DIFF DAILY Acetaminophen (Acetaminophen 325 Mg Tablet) 650 mg PO Q6H PRN PRN Reason: Fever/Mild Pain (1-3) Albuterol/Ipratropium (Albuterol/Ipratropium 3 Ml Ampul) 3 ml INH Q1H PRN PRN Reason: Shortness Of Breath Last Admin: 09/13/25 22:46 Dose: 3 ml Documented By: PV Albuterol/Ipratropium (Albuterol/Ipratropium 3 Ml Ampul) 3 ml INH RTQ4HR PRN PRN Reason: Shortness Of Breath Albuterol/Ipratropium (Albuterol/Ipratropium 3 Ml Ampul) 3 ml INH [id number] CHARLEY Enoxaparin Sodium (Enoxaparin 40 Mg/0.4 Ml Syringe) 40 mg SUBCUT DAILY [facility], 1928–1983 Hydrocortisone (Hydrocortisone 100 Mg/2 Ml Vial) 50 mg IV Q6HR [facility], 1928–1983 Azithromycin 500 mg/ Dextrose 250 mls @ 250 mls/hr IV Q24H [facility], 1928–1983 Last Infusion: 09/14/25 05:14 Dose: Infused Documented By: Admin: 09/14/25 04:06 Dose: 250 mls/hr Documented By: BRIGDET Ceftriaxone Sodium 1,000 mg/ (Sodium Chloride) 100 mls @ 200 mls/hr IV Q24H [facility], 1928–1983 Last Admin: 09/14/25 04:10 Dose: Not Given Documented By: BRIDGET Naloxone HCl (Naloxone 0.4 Mg/Ml Vial) 0.2 mg IV Q2MIN PRN PRN Reason: Opiate Reversal Ondansetron HCl (Ondansetron 4 Mg/2 Ml Inj) 4 mg IV Q8HR PRN PRN Reason: Nausea And Vomiting Discontinued Medications Albuterol/Ipratropium (Albuterol/Ipratropium 3 Ml Ampul) 3 ml INH Q20M CHARLEY Stop: 09/13/25 22:36 Last Admin: 09/13/25 22:16 Dose: 3 ml Documented By: Admin: 09/13/25 22:16 Dose: 3 ml Documented By: CHARLES Magnesium Sulfate (Magnesium Sulfate) 2 gm in 50 mls @ 150 mls/hr IV NOW ONE Stop: 09/13/25 22:49 Last Infusion: 09/13/25 23:01 Dose: Infused Documented By: ANITHA Co-signed By: BRIDGET Admin: 09/13/25 22:38 Dose: 150 mls/hr Documented By: ANITHA Co-signed By: JENAE Ceftriaxone Sodium 1,000 mg/ (Sodium Chloride) 100 mls @ 200 mls/hr IV NOW ONE Stop: 09/14/25 02:23 Last Infusion: 09/14/25 03:15 Dose: Infused Documented By: Admin: 09/14/25 02:45 Dose: 200 mls/hr Documented By: JENAE Azithromycin 500 mg/ Dextrose 250 mls @ 250 mls/hr IV NOW ONE Stop: 09/14/25 02:23 Last Admin: 09/14/25 04:07 Dose: Not Given Documented By: BRIDGET Methylprednisolone (Methylprednisolone Succ 125 Mg/2 Ml Vial) 125 mg IV NOW ONE Stop: 09/13/25 22:28 Last Admin: 09/13/25 22:35 Dose: 125 mg Documented By: TC Consultations Consultation #1: Dr. Han hospitalist graciously admitted the patient. Vital Signs Vital signs: Vital Signs - 8 hr 09/13/25 22:17 09/13/25 22:17 09/13/25 22:18 Temperature Pulse Rate 105 H 103 H 104 H Respiratory Rate 28 H 21 22 Blood Pressure Pulse Oximetry 92 92 92 Oxygen Delivery Method Non -Rebreather Non -Rebreather Oxygen Flow Rate 15 15 Fraction of Inspired Oxygen 100 09/13/25 22:18 09/13/25 22:23 09/13/25 22:30 Temperature 99.2 F Pulse Rate 108 H Respiratory Rate 44 H Blood Pressure 154/83 H 169/102 H 129/85 Pulse Oximetry 72 L Oxygen Delivery Method Room Air Oxygen Flow Rate Fraction of Inspired Oxygen 09/13/25 22:30 09/13/25 22:46 09/13/25 22:48 Temperature Pulse Rate 104 H 101 H Respiratory Rate 17 16 Blood Pressure 129/85 Pulse Oximetry 89 L 97 Oxygen Delivery Method BiPAP Oxygen Flow Rate Fraction of Inspired Oxygen 50 50 09/13/25 23:00 09/13/25 23:00 09/13/25 23:30 Temperature Pulse Rate 97 H Respiratory Rate 14 Blood Pressure 105/70 100/70 Pulse Oximetry 97 Oxygen Delivery Method Oxygen Flow Rate Fraction of Inspired Oxygen 09/13/25 23:30 09/13/25 23:55 09/13/25 23:55 Temperature Pulse Rate 88 93 H Respiratory Rate 10 L 16 Blood Pressure 136/75 Pulse Oximetry 96 98 Oxygen Delivery Method BiPAP Oxygen Flow Rate Fraction of Inspired Oxygen 09/14/25 00:00 09/14/25 00:00 09/14/25 00:30 Temperature Pulse Rate 96 H Respiratory Rate 9 L Blood Pressure 130/69 112/69 Pulse Oximetry 91 Oxygen Delivery Method Nasal Cannula Oxygen Flow Rate 6 Fraction of Inspired Oxygen 09/14/25 00:30 09/14/25 01:00 09/14/25 01:00 Temperature Pulse Rate 89 98 H Respiratory Rate 9 L 17 Blood Pressure 88/63 L Pulse Oximetry 92 91 Oxygen Delivery Method Nasal Cannula Nasal Cannula Oxygen Flow Rate 2 2 Fraction of Inspired Oxygen 09/14/25 01:30 09/14/25 01:30 09/14/25 02:00 Temperature Pulse Rate 89 92 H Respiratory Rate 12 13 Blood Pressure 97/66 Pulse Oximetry 92 92 Oxygen Delivery Method Nasal Cannula Oxygen Flow Rate 2 Fraction of Inspired Oxygen 09/14/25 02:00 Temperature Pulse Rate Respiratory Rate Blood Pressure 114/66 Pulse Oximetry Oxygen Delivery Method Oxygen Flow Rate Fraction of Inspired Oxygen MDM - SOB/Dyspnea Lab Data 09/13/25 22:30 09/13/25 22:30 Labs: Lab Results 09/13/25 09/13/25 09/14/25 Range/Units 22:30 23:26 00:34 WBC 8.3 (4.5-11.0) X10^3/uL RBC 5.06 (4.5-5.9) X10^6/uL Hgb 15.7 (13.5-17.5) g/dL Hct 44.4 (41-53) % MCV 87.7 (80-100) fL MCH 31.0 (26-34) PG MCHC 35.3 (30-36) % RDW 13.2 (11.6-14.8) % Plt Count 356 (150-400) X10^3/uL Neut % (Auto) 34.0 L (50-75) % Lymph % (Auto) 49.0 H (25-40) % [place] % (Auto) 10.5 (3-14) % Eos % (Auto) 6.0 H (2-4) % Baso % (Auto) 0.5 (0-2) % Neut # (Auto) 2800 (8788-6508) /uL Lymph # (Auto) 4000 (9690-8541) /uL [place] # (Auto) 900 (0-900) /uL Eos # (Auto) 500 H (0-450) /uL Baso # (Auto) 0 (0-100) /uL PT 12.1 (9.4-12.5) SECONDS INR 1.1 (0.9-1.3) APTT 24 L (25.1-36.5) SECONDS D-Dimer 549 H (<500) ng/ml Sodium 136 L (137-145) mmol/L Potassium 3.3 L (3.4-5.1) mmol/L Chloride 97 L (98-107) mmol/L Carbon Dioxide 30 (22-32) mmol/L BUN 16 (9-20) mg/dL Creatinine 0.83 (0.66-1.25) mg/dL Estimated GFR > 60 (>60) mL/min BUN/Creatinine Ratio 19.3 (6-22) Glucose 152 H (70-99) mg/dL Lactate 1.7 (0.7-2.1) mmol/L Calcium 8.8 (8.4-10.2) mg/dL Magnesium 1.9 (1.6-2.3) mg/dL Total Bilirubin 0.3 (0.2-1.3) mg/dL AST 27 (17-59) IU/L ALT 25 (<50) IU/L Alkaline Phosphatase 86 (38-126) U/L Total Creatine Kinase 67 (55-170) U/L Troponin I < 0.012 (0.01-0.034) ng/mL NT-Pro-B Natriuret Pep 40 (<125) pg/mL Total Protein 7.7 (6.3-8.2) g/dL Albumin 4.3 (3.5-5.0) g/dL Globulin 3.4 (1.7-4.1) g/dL Albumin/Globulin Ratio 1.3 (1.0-2.8) Lipase 66 (23-300) U/L Procalcitonin < 0.030 (<0.5) ng/mL Chlamy pneumoniae PCR Not detected (Not Detect) Adenovirus (PCR) Not detected (Not Detect) B. pertussis DNA (PCR) Not detected (Not Detect) B.parapertussis DNA PCR Not detected (Not Detecte) Coronavirus OC43 (PCR) Not detected (Not Detect) Coronavirus HKU1 (PCR) Not detected (Not Detect) Coronavirus 229E (PCR) Not detected (Not Detect) SARS-CoV-2 (PCR) Not detected (Not Detecte) Coronavirus NL63 (PCR) Not detected (Not Detect) Human Metapneumovir PCR Not detected (Not Detect) Influenza Type A (PCR) Not detected (Not Detect) Influenza Type B (PCR) Not detected (Not Detect) M. pneumoniae (PCR) Not detected (Not Detect) Parainfluenza 1 (PCR) Not detected (Not Detect) Parainfluenza 2 (PCR) Not detected (Not Detect) Parainfluenza 3 (PCR) Not detected (Not Detect) Parainfluenza 4 (PCR) Not detected (Not Detect) RSV (PCR) Not detected (Not Detect) Entero/Rhino (PCR) Not detected (Not Detect) Imaging Data CT scan - chest: Radiologist's Impression: No pulmonary embolus. Bronchitis, progressed from last month. Differential includes aspiration given dependent nature. Correlate with risk factors and consider speech pathology referral. Superimposed mild pulmonary edema. Dilated aortic root and ascending aorta. Recommend outpatient cardiology referral given size. Chest x-ray: Radiologist's Impression: Patchy left basilar opacity, likely representing atelectasis. [facility] Narrative Medical decision making narrative: 65-year-old male who came in with extreme respiratory distress. He initially needed BiPAP support but as since then weaned down to 3 L of O2 nasal cannula. His oxygen now remains between 92-94%. He is finally resting comfortably. He also needed a couple of DuoNeb treatments, magnesium and Solu-Medrol. He does admit to be a long-term smoker but has since quit smoking in the past month. He was given an albuterol inhaler that he uses occasionally as needed. Most likely dealing with a COPD exacerbation. Hospitalist Dr. Han graciously admitted the patient. Patient was just admitted approximately a month ago for pneumonia as well. Given antibiotics Rocephin and azithromycin after blood cultures were taken here today as well. Discharge Plan Departure Patient Disposition: Admitted As Inpatient Clinical Impression: Acute dyspnea Admit Date/Time: 09/14/25 02:32 Admit Provider: Brain Han
--- NOTE | 2025-09-13 22:28 | DI.RAD.S_ITS ---
PROCEDURE: XR CHEST 1V INDICATIONS: Chest Pain TECHNIQUE: One view of the chest was acquired. COMPARISON: [facility], CR, XR CHEST 1V, 08/17/2025, 21:12. [facility], CR, XR CHEST 2V, 08/05/2025, 12:25. FINDINGS: Surgical changes and devices: None. Lungs and pleura: Patchy left basilar opacity. Mediastinum: Mediastinal contours appear normal. Heart size is normal. Bones and chest wall: No suspicious bony lesions. Overlying soft tissues appear unremarkable. IMPRESSION: Patchy left basilar opacity, likely representing atelectasis. Dictated by: Bryce Cortez M.D. on 09/13/2025 at 22:41 Approved by: Bryce Cortez M.D. on 09/13/2025 at 22:41
[2025-09-13] MEDS: methylPREDNISolone succ 125 MG/2 ML VIAL IV (22:35)
[2025-09-13] MEDS: MAGNESIUM SULFATE 2 GM/50 ML PIGGYBACK IV (22:38)
[2025-09-13 23:09] LABS: Add Manual Diff / Slide Review NO; Hematocrit 44.4 % (41-53); Hemoglobin 15.7 g/dL (13.5-17.5); Lymphocytes Absolute Auto 4000 /uL (1100-4500); Mean Corpuscular HGB Conc 35.3 % (30-36); Mean Corpuscular Hemoglobin 31.0 PG (26-34); Mean Corpuscular Volume 87.7 fL (80-100); Platelet Count 356 X10^3/uL (150-400)
[2025-09-13 23:17] LABS: INR 1.1 (0.9-1.3); Prothrombin Time 12.1 SECONDS (9.4-12.5)
[2025-09-13 23:20] LABS: PTT Partial Thromboplastin Tim 24 SECONDS (25.1-36.5)
[2025-09-13 23:21] LABS: Lactate (Lactic Acid) 1.7 mmol/L (0.7-2.1)
[2025-09-13 23:22] LABS: Alanine Aminotransferase 25 IU/L (<50); Albumin 4.3 g/dL (3.5-5.0); Albumin Globulin Ratio 1.3 (1.0-2.8); Alkaline Phosphatase 86 U/L (38-126); Blood Urea Nitrogen 16 mg/dL (9-20); Calcium 8.8 mg/dL (8.4-10.2); Carbon Dioxide 30 mmol/L (22-32); Chloride 97 mmol/L (98-107); Creatine Kinase 67 U/L (55-170); Estimated Glomerular Filt Rate > 60 mL/min (>60); Globulin 3.4 g/dL (1.7-4.1); Glucose 152 mg/dL (70-99); HEMOLYSIS 16 (0-50); Lipase 66 U/L (23-300); Magnesium 1.9 mg/dL (1.6-2.3); Potassium 3.3 mmol/L (3.4-5.1); Sodium 136 mmol/L (137-145); Total Protein 7.7 g/dL (6.3-8.2)
--- NOTE | 2025-09-13 23:29 | DI.CT.S_ITS ---
PROCEDURE: CT ANGIO CHEST PE PROTOCOL INDICATIONS: elevated d dimer/sob TECHNIQUE: After the administration of intravenous contrast, 2 mm thick sections acquired from the pulmonary apices to the posterior costophrenic angles. 3-dimensional maximum intensity projection (MIP) coronal and sagittal reformats were then acquired through the thorax. For radiation dose reduction, the following was used: automated exposure control, adjustment of mA and/or kV according to patient size. COMPARISON: [facility], CT, CT ANGIO CHEST PE PROTOCOL, 08/18/2025, 0:02. FINDINGS: Image quality: Diagnostic. Pulmonary arteries: Pulmonary arteries are normal in size, and demonstrate no intraluminal filling defects to suggest central pulmonary embolism. Lower Neck: No enlarged lymph nodes. Thyroid: No thyroid nodules which require sonographic follow up, per consensus guidelines. Axillae: No enlarged lymph nodes. Chest Wall: Unremarkable. Bones: Unremarkable. Lungs and Pleura: No pneumothorax or pleural effusions. Central bronchial thickening, with endobronchial debris. Centrilobular nodules and mild tree-in-bud nodules. This is mostly central and dependent. Superimposed smooth interstitial thickening. Heart: Heart size is normal. No pericardial effusion. Thoracic Vessels: Dilated aortic root at 5 cm. Dilated ascending aorta at 4.7 cm. Findings are unchanged from prior. Mediastinum and Kelle: No enlarged lymph nodes. Esophagus: No wall thickening. No hiatal hernia. Upper Abdomen: Benign hepatic cyst. IMPRESSION: No pulmonary embolus. Bronchitis, progressed from last month. Differential includes aspiration given dependent nature. Correlate with risk factors and consider speech pathology referral. Superimposed mild pulmonary edema. Dilated aortic root and ascending aorta. Recommend outpatient cardiology referral given size. Dictated by: Bryce Cortez M.D. on 09/14/2025 at 0:08 Approved by: Bryce Cortez M.D. on 09/14/2025 at 0:12
[2025-09-13 23:34] LABS: NT-proBNP (BNP-Adult 18+) 40 pg/mL (<125); Troponin I < 0.012 ng/mL (0.01-0.034)
--- NOTE | 2025-09-13 23:57 | PC.NURSE ---
Pt off bipap to go to ct. Upon return provider okay for patient to do a trial off of bipap. Pt on nc at 6L at this time
[2025-09-14] VITALS (26 sets, daily range): BP systolic 88–130; BP diastolic 62–79; PULSE 84–101; RESP 9–22; O2SAT 91–95
[2025-09-14 00:18] LABS: Coronavirus NL 63 Not Detected (Not Detect); SARS- CoV-2 Not Detected (Not Detecte)
[2025-09-14 01:21] LABS: Procalcitonin < 0.030 ng/mL (<0.5)
[2025-09-14] MEDS: AZITHROMYCIN 500 MG in DEXTROSE 5% IN WATER 250 ML 250 MG IV (04:06)
--- NOTE | 2025-09-14 05:40 | P.HP_ITS ---
History of Present Illness History of Present Illness Date Patient Seen: 09/14/25 Time Patient Seen: 03:43 Chief complaint: SOB X 45min Narrative: 65-year-old male with past medical history of possible reactive airway disease, remote history of 40 pack year smoker quit many years ago, present with shortness of breath and wheezing. Per the patient's report, over the last few days the patient has had increasing shortness of breath, wheezing and cough. Recently in July of this year the patient was admitted here for pneumonia and possible reactive airway disease exacerbation. The patient states that he was discharged home and was feeling relatively better but never got a chance to get PFTs done yet. The patient admitted to have some coughing as well and states that the coughing has been ongoing for the last few weeks. Otherwise the patient denies any fever, chills, nausea, vomiting, diarrhea or chest pain. In the emergency room, the patient was hemodynamically stable but was requiring 2 L of oxygen per nasal cannula. The patient was still in respiratory distress. Chest x-ray shows left basilar opacity likely representing atelectasis however CT angio of the chest shows no PE but possible bronchitis progressed from last month. The patient was given azithromycin, ceftriaxone, Solu-Medrol and DuoNebs. [facility] Medical History (Updated 08/24/25 @ 12:08 by Gaby Mancini DO) Atypical pneumonia (~08/2025) Wears glasses Surgical History Anesthesia [place] teeth removed (~1980) History of knee surgery (~1974) Family History Father History of heart disease Mother Diabetes mellitus Social History household members: significant other and other Smoking Status: Former smoker Tobacco: How many years used: 10 second hand exposure: No alcohol intake: current substance use type: does not use Meds Home Medications and Allergies Home Medications ?Medication ?Instructions ?Recorded ?Confirmed ?Type multivitamin 1 tab PO DAILY 12/27/22 10/0 05/01 History albuterol sulfate 90 mcg/actuation 2 puff inhalation Q 4-6H PRN 08/24/25 08/24/25 Rx aerosol inhaler shortness of breath or wheez ing #8.5 grams Allergies Allergy/AdvReac Type Severity Reaction Status Date / Time No Known Drug Allergies Allergy Verified 09/13/25 22:23 Review of Systems Review of Systems ROS: Yes All systems reviewed with the patient and are negative except as otherwise documented Exam Vital Signs (past 8 hours): - 09/13/25 22:17 09/13/25 22:17 09/13/25 22:18 Temperature Pulse Rate 105 H 103 H 104 H Respiratory Rate 28 H 21 22 Blood Pressure Pulse Oximetry 92 92 92 Oxygen Delivery Method Non -Rebreather Non -Rebreather Oxygen Flow Rate 15 15 Fraction of Inspired Oxygen 100 09/13/25 22:18 09/13/25 22:23 09/13/25 22:30 Temperature 99.2 F Pulse Rate 108 H Respiratory Rate 44 H Blood Pressure 154/83 H 169/102 H 129/85 Pulse Oximetry 72 L Oxygen Delivery Method Room Air Oxygen Flow Rate Fraction of Inspired Oxygen 09/13/25 22:30 09/13/25 22:46 09/13/25 22:48 Temperature Pulse Rate 104 H 101 H Respiratory Rate 17 16 Blood Pressure 129/85 Pulse Oximetry 89 L 97 Oxygen Delivery Method BiPAP Oxygen Flow Rate Fraction of Inspired Oxygen 50 50 09/13/25 23:00 09/13/25 23:00 09/13/25 23:30 Temperature Pulse Rate 97 H Respiratory Rate 14 Blood Pressure 105/70 100/70 Pulse Oximetry 97 Oxygen Delivery Method Oxygen Flow Rate Fraction of Inspired Oxygen 09/13/25 23:30 09/13/25 23:55 09/13/25 23:55 Temperature Pulse Rate 88 93 H Respiratory Rate 10 L 16 Blood Pressure 136/75 Pulse Oximetry 96 98 Oxygen Delivery Method BiPAP Oxygen Flow Rate Fraction of Inspired Oxygen 09/14/25 00:00 09/14/25 00:00 09/14/25 00:30 Temperature Pulse Rate 96 H Respiratory Rate 9 L Blood Pressure 130/69 112/69 Pulse Oximetry 91 Oxygen Delivery Method Nasal Cannula Oxygen Flow Rate 6 Fraction of Inspired Oxygen 09/14/25 00:30 09/14/25 01:00 09/14/25 01:00 Temperature Pulse Rate 89 98 H Respiratory Rate 9 L 17 Blood Pressure 88/63 L Pulse Oximetry 92 91 Oxygen Delivery Method Nasal Cannula Nasal Cannula Oxygen Flow Rate 2 2 Fraction of Inspired Oxygen 09/14/25 01:30 09/14/25 01:30 09/14/25 02:00 Temperature Pulse Rate 89 92 H Respiratory Rate 12 13 Blood Pressure 97/66 Pulse Oximetry 92 92 Oxygen Delivery Method Nasal Cannula Oxygen Flow Rate 2 Fraction of Inspired Oxygen 09/14/25 02:00 Temperature Pulse Rate Respiratory Rate Blood Pressure 114/66 Pulse Oximetry Oxygen Delivery Method Oxygen Flow Rate Fraction of Inspired Oxygen Fraction of Inspired Oxygen 50 SaO2/FiO2 Ratio 194 Oxygen Delivery Method Nasal Cannula Oxygen Flow Rate 2 Narrative Exam Narrative: Physical Exam: GENERAL: The patient is not in any acute distressed. Awake and alert. HEENT: Nonicteric sclerae, PERRLA, EOMI. Oropharynx clear. Moist mucous membranes. Conjunctivae appear well perfused. HEART: Regular rate and rhythm without murmurs. No lower extremities edema. LUNGS: Bilateral wheezing but otherwise Clear to auscultation bilaterally. No , crackles or rhonchi ABDOMEN: Soft, positive bowel sounds, nontender. SKIN: No rash, no excessive bruising, petechiae, or purpura. NEUROLOGIC: AxO x 3. Cranial nerves II-XII intact without motor/sensory deficit. Objective Labs 09/13/25 22:30 09/13/25 22:30 Labs: Laboratory Results - last 24 hr 09/13/25 09/13/25 09/14/25 22:30 23:26 00:34 WBC 8.3 RBC 5.06 Hgb 15.7 Hct 44.4 MCV 87.7 MCH 31.0 MCHC 35.3 RDW 13.2 Plt Count 356 Neut % (Auto) 34.0 L Lymph % (Auto) 49.0 H [place] % (Auto) 10.5 Eos % (Auto) 6.0 H Baso % (Auto) 0.5 Neut # (Auto) 2800 Lymph # (Auto) 4000 [place] # (Auto) 900 Eos # (Auto) 500 H Baso # (Auto) 0 PT 12.1 INR 1.1 APTT 24 L D-Dimer 549 H Sodium 136 L Potassium 3.3 L Chloride 97 L Carbon Dioxide 30 BUN 16 Creatinine 0.83 Estimated GFR > 60 BUN/Creatinine Ratio 19.3 Glucose 152 H Lactate 1.7 Calcium 8.8 Magnesium 1.9 Total Bilirubin 0.3 AST 27 ALT 25 Alkaline Phosphatase 86 Total Creatine Kinase 67 Troponin I < 0.012 NT-Pro-B Natriuret Pep 40 Total Protein 7.7 Albumin 4.3 Globulin 3.4 Albumin/Globulin Ratio 1.3 Lipase 66 Procalcitonin < 0.030 Chlamy pneumoniae PCR Not detected Adenovirus (PCR) Not detected B. pertussis DNA (PCR) Not detected B.parapertussis DNA PCR Not detected Coronavirus OC43 (PCR) Not detected Coronavirus HKU1 (PCR) Not detected Coronavirus 229E (PCR) Not detected SARS-CoV-2 (PCR) Not detected Coronavirus NL63 (PCR) Not detected Human Metapneumovir PCR Not detected Influenza Type A (PCR) Not detected Influenza Type B (PCR) Not detected M. pneumoniae (PCR) Not detected Parainfluenza 1 (PCR) Not detected Parainfluenza 2 (PCR) Not detected Parainfluenza 3 (PCR) Not detected Parainfluenza 4 (PCR) Not detected RSV (PCR) Not detected Entero/Rhino (PCR) Not detected Assessment & Plan Assessment & Plan narrative: Possible undiagnosed asthma or COPD exacerbation. Admit the patient to medical inpatient. Continue Solu-Medrol, DuoNebs and antibiotics. Continue oxygen. Possible acute bronchitis/pneumonia. Continue IV azithromycin and ceftriaxone. Patient not septic at this time. Acute respiratory failure with hypoxemia. CT angio chest shows no PE. Continue to treat as above and wean down oxygen as able. History of tobacco abuse quit many years ago. Patient has a [id number] plus smoker. Will need PFT postdischarge. DVT prophylaxis heparin subcu. CODE STATUS full code. Disposition likely home in 2 days. - As the provider of this telehealth evaluation, requested by the patient's evaluating physician, I attest that I introduced myself to the patient, provided my credentials and determined that telemedicine via a real-time, 2 way interactive audio and video platform is an appropriate and effective means of providing this service. - I reviewed the patient's chart and had a discussion with the member of the patient's treatment team. - The patient and I mutually agreed with continuation of this evaluation via telemedicine. The patient consented for the telemedicine evaluation. - This virtual encounter was taken place from [place] by Dr. Brain Han. The patient was evaluated at [facility]. The encounter was approximately 35 minutes. The nurse was present during the entire time of the encounter and was able assists with the stethoscope to listen to the patients. Time-Based Coding :: [TOTAL MINUTES] spent with patient and on the chart (including review of chart, obtaining history, exam, reviewing outside data, placing orders, documenting exam and treatment plan, and counseling patient) on [DATE].
[2025-09-14] MEDS: HYDROCORTISONE 100 MG/2 ML VIAL 50 MG IV (06:19)
[2025-09-14 07:16] LABS: Add Manual Diff / Slide Review NO; Hematocrit 40.2 % (41-53); Hemoglobin 14.5 g/dL (13.5-17.5); Lymphocytes Absolute Auto 600 /uL (1100-4500); Mean Corpuscular HGB Conc 36.0 % (30-36); Mean Corpuscular Hemoglobin 31.4 PG (26-34); Mean Corpuscular Volume 87.1 fL (80-100); Platelet Count 295 X10^3/uL (150-400)
--- NOTE | 2025-09-14 07:17 | PM.HP.1 ---
History of Present Illness History of Present Illness Date Patient Seen: 09/14/25 Chief complaint: SOB X 45min Narrative: 65-year-old male with past medical history of possible reactive airway disease, remote history of 40 pack year smoker quit many years ago, present with shortness of breath and wheezing. Per the patient's report, over the last few days the patient has had increasing shortness of breath, wheezing and cough. Recently in July of this year the patient was admitted here for pneumonia and possible reactive airway disease exacerbation. The patient states that he was discharged home and was feeling relatively better but never got a chance to get PFTs done yet. The patient admitted to have some coughing as well and states that the coughing has been ongoing for the last few weeks. Otherwise the patient denies any fever, chills, nausea, vomiting, diarrhea or chest pain. In the emergency room, the patient was hemodynamically stable but was requiring 2 L of oxygen per nasal cannula. The patient was still in respiratory distress. Chest x-ray shows left basilar opacity likely representing atelectasis however CT angio of the chest shows no PE but possible bronchitis progressed from last month. The patient was given azithromycin, ceftriaxone, Solu-Medrol and DuoNebs. [facility] Medical History (Updated 08/24/25 @ 12:08 by Gaby Mancini DO) Atypical pneumonia (~08/2025) Wears glasses Surgical History Anesthesia [place] teeth removed (~1980) History of knee surgery (~1974) Family History Father History of heart disease Mother Diabetes mellitus Social History household members: significant other and other Smoking Status: Former smoker Tobacco: How many years used: 10 second hand exposure: No alcohol intake: current substance use type: does not use Meds Home Medications and Allergies Home Medications ?Medication ?Instructions ?Recorded ?Confirmed ?Type multivitamin 1 tab PO DAILY 12/27/22 07/14/25 History albuterol sulfate 90 mcg/actuation 2 puff inhalation Q4-6H PRN 08/24/25 08/24/25 Rx aerosol inhaler shortness of breath or wheezing #8.5 grams Allergies Allergy/AdvReac Type Severity Reaction Status Date / Time No Known Drug Allergies Allergy Verified 09/13/25 22:23 Review of Systems Review of Systems ROS: Yes All systems reviewed with the patient and are negative except as otherwise documented Exam Vital Signs (past 8 hours): - 09/13/2522:17 09/13/2522:17 09/13/2522:18 Temperature Pulse Rate 105 H 103 H 104 H Respiratory Rate 28 H 21 22 Blood Pressure Pulse Oximetry 92 92 92 Oxygen Delivery Method Non -Rebreather Non -Rebreather Oxygen Flow Rate 15 15 Fraction of Inspired Oxygen 100 09/13/2522:18 09/13/2522:23 09/13/2522:30 Temperature 99.2 F Pulse Rate 108 H Respiratory Rate 44 H Blood Pressure 154/83 H 169/102 H 129/85 Pulse Oximetry 72 L Oxygen Delivery Method Room Air Oxygen Flow Rate Fraction of Inspired Oxygen 09/13/2522:30 09/13/2522:46 09/13/2522:48 Temperature Pulse Rate 104 H 101 H Respiratory Rate 17 16 Blood Pressure 129/85 Pulse Oximetry 89 L 97 Oxygen Delivery Method BiPAP Oxygen Flow Rate Fraction of Inspired Oxygen 50 50 09/13/2523:00 09/13/2523:00 09/13/2523:30 Temperature Pulse Rate 97 H Respiratory Rate 14 Blood Pressure 105/70 100/70 Pulse Oximetry 97 Oxygen Delivery Method Oxygen Flow Rate Fraction of Inspired Oxygen 09/13/2523:30 09/13/2523:55 09/13/2523:55 Temperature Pulse Rate 88 93 H Respiratory Rate 10 L 16 Blood Pressure 136/75 Pulse Oximetry 96 98 Oxygen Delivery Method BiPAP Oxygen Flow Rate Fraction of Inspired Oxygen 09/14/2500:00 09/14/2500:00 09/14/2500:30 Temperature Pulse Rate 96 H Respiratory Rate 9 L Blood Pressure 130/69 112/69 Pulse Oximetry 91 Oxygen Delivery Method Nasal Cannula Oxygen Flow Rate 6 Fraction of Inspired Oxygen 09/14/2500:30 09/14/2501:00 09/14/2501:00 Temperature Pulse Rate 89 98 H Respiratory Rate 9 L 17 Blood Pressure 88/63 L Pulse Oximetry 92 91 Oxygen Delivery Method Nasal Cannula Nasal Cannula Oxygen Flow Rate 2 2 Fraction of Inspired Oxygen 09/14/2501:30 09/14/2501:30 09/14/2502:00 Temperature Pulse Rate 89 92 H Respiratory Rate 12 13 Blood Pressure 97/66 Pulse Oximetry 92 92 Oxygen Delivery Method Nasal Cannula Oxygen Flow Rate 2 Fraction of Inspired Oxygen 09/14/2502:00 Temperature Pulse Rate Respiratory Rate Blood Pressure 114/66 Pulse Oximetry Oxygen Delivery Method Oxygen Flow Rate Fraction of Inspired Oxygen Fraction of Inspired Oxygen 50 SaO2/FiO2 Ratio 194 Oxygen Delivery Method Nasal Cannula Oxygen Flow Rate 2 Narrative Exam Narrative: Physical Exam: GENERAL: The patient is not in any acute distressed. Awake and alert. HEENT: Nonicteric sclerae, PERRLA, EOMI. Oropharynx clear. Moist mucous membranes. Conjunctivae appear well perfused. HEART: Regular rate and rhythm without murmurs. No lower extremities edema. LUNGS: Bilateral wheezing but otherwise Clear to auscultation bilaterally. No , crackles or rhonchi ABDOMEN: Soft, positive bowel sounds, nontender. SKIN: No rash, no excessive bruising, petechiae, or purpura. NEUROLOGIC: AxO x 3. Cranial nerves II-XII intact without motor/sensory deficit. Objective Labs 09/13/25 22:30 09/13/25 22:30 Labs: Laboratory Results - last 24 hr 09/13/25 09/13/25 09/14/25 22:30 23:26 00:34 WBC 8.3 RBC 5.06 Hgb 15.7 Hct 44.4 MCV 87.7 MCH 31.0 MCHC 35.3 RDW 13.2 Plt Count 356 Neut % (Auto) 34.0 L Lymph % (Auto) 49.0 H [place] % (Auto) 10.5 Eos % (Auto) 6.0 H Baso % (Auto) 0.5 Neut # (Auto) 2800 Lymph # (Auto) 4000 [place] # (Auto) 900 Eos # (Auto) 500 H Baso # (Auto) 0 PT 12.1 INR 1.1 APTT 24 L D-Dimer 549 H Sodium 136 L Potassium 3.3 L Chloride 97 L Carbon Dioxide 30 BUN 16 Creatinine 0.83 Estimated GFR > 60 BUN/Creatinine Ratio 19.3 Glucose 152 H Lactate 1.7 Calcium 8.8 Magnesium 1.9 Total Bilirubin 0.3 AST 27 ALT 25 Alkaline Phosphatase 86 Total Creatine Kinase 67 Troponin I < 0.012 NT-Pro-B Natriuret Pep 40 Total Protein 7.7 Albumin 4.3 Globulin 3.4 Albumin/Globulin Ratio 1.3 Lipase 66 Procalcitonin < 0.030 Chlamy pneumoniae PCR Not detected Adenovirus (PCR) Not detected B. pertussis DNA (PCR) Not detected B.parapertussis DNA PCR Not detected Coronavirus OC43 (PCR) Not detected Coronavirus HKU1 (PCR) Not detected Coronavirus 229E (PCR) Not detected SARS-CoV-2 (PCR) Not detected Coronavirus NL63 (PCR) Not detected Human Metapneumovir PCR Not detected Influenza Type A (PCR) Not detected Influenza Type B (PCR) Not detected M. pneumoniae (PCR) Not detected Parainfluenza 1 (PCR) Not detected Parainfluenza 2 (PCR) Not detected Parainfluenza 3 (PCR) Not detected Parainfluenza 4 (PCR) Not detected RSV (PCR) Not detected Entero/Rhino (PCR) Not detected Assessment & Plan Assessment & Plan narrative: Possible undiagnosed asthma or COPD exacerbation. Admit the patient to medical inpatient. Continue Solu-Medrol, DuoNebs and antibiotics. Continue oxygen. Possible acute bronchitis/pneumonia. Continue IV azithromycin and ceftriaxone. Patient not septic at this time. Acute respiratory failure with hypoxemia. CT angio chest shows no PE. Continue to treat as above and wean down oxygen as able. History of tobacco abuse quit many years ago. Patient has a [id number] plus smoker. Will need PFT postdischarge. DVT prophylaxis heparin subcu. CODE STATUS full code. Disposition likely home in 2 days. [facility] Medical History (Updated 09/14/25 @ 06:17 by Carmelo Young MD) Atypical pneumonia (~08/2025) Wears glasses Surgical History Anesthesia [place] teeth removed (~1980) History of knee surgery (~1974) Family History Father History of heart disease Mother Diabetes mellitus Social History household members: significant other and other Smoking Status: Former smoker Tobacco: How many years used: 10 second hand exposure: No alcohol intake: current substance use type: does not use Meds Home Medications and Allergies Home Medications ?Medication ?Instructions ?Recorded ?Confirmed ?Type multivitamin 1 tab PO DAILY 12/27/22 07/14/25 History albuterol sulfate 90 mcg/actuation 2 puff inhalation Q4-6H PRN 08/24/25 08/24/25 Rx aerosol inhaler shortness of breath or wheezing #8.5 grams Allergies Allergy/AdvReac Type Severity Reaction Status Date / Time No Known Drug Allergies Allergy Verified 09/13/25 22:23 Exam Vital Signs (past 8 hours): - 09/13/25 23:30 09/13/25 23:30 09/13/25 23:55 Pulse Rate 88 93 H Respiratory Rate 10 L 16 Blood Pressure 100/70 Pulse Oximetry 96 98 Oxygen Delivery Method BiPAP Oxygen Flow Rate 09/13/25 23:55 09/14/25 00:00 09/14/25 00:00 Pulse Rate 96 H Respiratory Rate 9 L Blood Pressure 136/75 130/69 Pulse Oximetry 91 Oxygen Delivery Method Nasal Cannula Oxygen Flow Rate 6 09/14/25 00:30 09/14/25 00:30 09/14/25 01:00 Pulse Rate 89 98 H Respiratory Rate 9 L 17 Blood Pressure 112/69 Pulse Oximetry 92 91 Oxygen Delivery Method Nasal Cannula Nasal Cannula Oxygen Flow Rate 2 2 09/14/25 01:00 09/14/25 01:30 09/14/25 01:30 Pulse Rate 89 Respiratory Rate 12 Blood Pressure 88/63 L 97/66 Pulse Oximetry 92 Oxygen Delivery Method Oxygen Flow Rate 09/14/25 02:00 09/14/25 02:00 Pulse Rate 92 H Respiratory Rate 13 Blood Pressure 114/66 Pulse Oximetry 92 Oxygen Delivery Method Nasal Cannula Oxygen Flow Rate 2 Fraction of Inspired Oxygen 50 SaO2/FiO2 Ratio 194 Oxygen Delivery Method Nasal Cannula Oxygen Flow Rate 2 Objective Labs 09/13/25 22:30 09/13/25 22:30 Labs: Laboratory Results - last 24 hr 09/13/25 09/13/25 09/14/25 22:30 23:26 00:34 WBC 8.3 RBC 5.06 Hgb 15.7 Hct 44.4 MCV 87.7 MCH 31.0 MCHC 35.3 RDW 13.2 Plt Count 356 Neut % (Auto) 34.0 L Lymph % (Auto) 49.0 H [place] % (Auto) 10.5 Eos % (Auto) 6.0 H Baso % (Auto) 0.5 Neut # (Auto) 2800 Lymph # (Auto) 4000 [place] # (Auto) 900 Eos # (Auto) 500 H Baso # (Auto) 0 PT 12.1 INR 1.1 APTT 24 L D-Dimer 549 H Sodium 136 L Potassium 3.3 L Chloride 97 L Carbon Dioxide 30 BUN 16 Creatinine 0.83 Estimated GFR > 60 BUN/Creatinine Ratio 19.3 Glucose 152 H Lactate 1.7 Calcium 8.8 Magnesium 1.9 Total Bilirubin 0.3 AST 27 ALT 25 Alkaline Phosphatase 86 Total Creatine Kinase 67 Troponin I < 0.012 NT-Pro-B Natriuret Pep 40 Total Protein 7.7 Albumin 4.3 Globulin 3.4 Albumin/Globulin Ratio 1.3 Lipase 66 Procalcitonin < 0.030 Chlamy pneumoniae PCR Not detected Adenovirus (PCR) Not detected B. pertussis DNA (PCR) Not detected B.parapertussis DNA PCR Not detected Coronavirus OC43 (PCR) Not detected Coronavirus HKU1 (PCR) Not detected Coronavirus 229E (PCR) Not detected SARS-CoV-2 (PCR) Not detected Coronavirus NL63 (PCR) Not detected Human Metapneumovir PCR Not detected Influenza Type A (PCR) Not detected Influenza Type B (PCR) Not detected M. pneumoniae (PCR) Not detected Parainfluenza 1 (PCR) Not detected Parainfluenza 2 (PCR) Not detected Parainfluenza 3 (PCR) Not detected Parainfluenza 4 (PCR) Not detected RSV (PCR) Not detected Entero/Rhino (PCR) Not detected Assessment & Plan Time-Based Coding :: [TOTAL MINUTES] spent with patient and on the chart (including review of chart, obtaining history, exam, reviewing outside data, placing orders, documenting exam and treatment plan, and counseling patient) on [DATE].
[2025-09-14] MEDS: POTASSIUM CHLORIDE 20 MEQ TAB 40 MEQ PO (11:48)
--- NOTE | 2025-09-14 14:44 | PM.DS.1 ---
History of Present Illness History of Present Illness Chief complaint: SOB X 45min Narrative: 65-year-old male with past medical history of possible reactive airway disease, remote history of 40 pack year smoker quit many years ago, present with shortness of breath and wheezing. Per the patient's report, over the last few days the patient has had increasing shortness of breath, wheezing and cough. Recently in July of this year the patient was admitted here for pneumonia and possible reactive airway disease exacerbation. The patient states that he was discharged home and was feeling relatively better but never got a chance to get PFTs done yet. The patient admitted to have some coughing as well and states that the coughing has been ongoing for the last few weeks. Otherwise the patient denies any fever, chills, nausea, vomiting, diarrhea or chest pain. In the emergency room, the patient was hemodynamically stable but was requiring 2 L of oxygen per nasal cannula. The patient was still in respiratory distress. Chest x-ray shows left basilar opacity likely representing atelectasis however CT angio of the chest shows no PE but possible bronchitis progressed from last month. The patient was given azithromycin, ceftriaxone, Solu-Medrol and DuoNebs. Discharge Providers Provider Date of admission: 09/14/25 02:32 Discharge Date: 09/14/25 Primary care physician: Gaby Mancini DO Discharge provider: Michelle Subramanian MD Summary Hospital Course Discharge Diagnosis: The patient was initially evaluated for continued admission and treatment but when his hypoxia resolved and his respiratory distress resolved he requested immediate discharge. This was similar to what occurred at his last admission. He was discharged on prednisone 40 mg daily for 5 days and then ongoing 20 mg daily to be continued until evaluated by his PCP and/or pulmonology. He already has albuterol at home. I discussed with him that if he has a flare-up he should return as he did yesterday but I would expect then that he would need to stay for several days to confirm stability even if symptoms did resolve as readily as they did these last 2 admissions. He was treated with 40 loretta of potassium chloride by mouth for a potassium level of 3.3, likely related to albuterol use. Hospital Course: Possible undiagnosed asthma or COPD exacerbation. Treated with Solu-Medrol, DuoNebs, antibiotics and oxygen. Home prednisone prescribed. Possible acute bronchitis/pneumonia. Treated with IV azithromycin and ceftriaxone. Discharged home on Azithromycin. Acute respiratory failure with hypoxemia. CT angio chest shows no PE. Weaned off of Oxygen, symptoms resolved, requested immediate discharge. History of tobacco abuse (quit many years ago?). Patient later clarifed that he started smoking in his 40s, smoked 1-2 packs per month and only recently stopped with his last admission. Will need PFT postdischarge. There is no FH of Alpha Antitrypsin Deficiency. Status at Discharge Cognitive/behavioral status at discharge: at baseline, oriented Functional status at discharge: independent ambulation Overall status at discharge: patient is back to baseline Time Spent with Patient Time spent: Greater than 30 minutes Time spent discussing smoking cessation with patient: 3 to 10 minutes Exam Vital Signs (past 8 hours): - 09/14/25 07:00 09/14/25 07:00 09/14/25 07:30 Pulse Rate 88 84 Respiratory Rate 9 L 11 L Blood Pressure 102/64 Pulse Oximetry 93 94 Oxygen Delivery Method Nasal Cannula Nasal Cannula Oxygen Flow Rate 1 1 09/14/25 07:30 09/14/25 08:00 09/14/25 08:01 Pulse Rate 91 H 89 Respiratory Rate 22 17 Blood Pressure 98/62 Pulse Oximetry 92 93 Oxygen Delivery Method Oxygen Flow Rate 09/14/25 08:01 09/14/25 08:30 09/14/25 08:30 Pulse Rate 96 H Respiratory Rate 22 Blood Pressure 118/79 118/71 Pulse Oximetry 92 Oxygen Delivery Method Oxygen Flow Rate 09/14/25 09:00 09/14/25 09:00 09/14/25 09:30 Pulse Rate 101 H Respiratory Rate 13 Blood Pressure 127/74 117/70 Pulse Oximetry 93 Oxygen Delivery Method Oxygen Flow Rate 09/14/25 09:30 09/14/25 10:00 09/14/25 10:30 Pulse Rate 96 H 100 H 98 H Respiratory Rate 10 L 15 14 Blood Pressure Pulse Oximetry 94 94 91 Oxygen Delivery Method Oxygen Flow Rate 09/14/25 11:00 09/14/25 11:30 09/14/25 11:31 Pulse Rate 94 H 95 H 98 H Respiratory Rate 19 22 22 Blood Pressure 119/73 Pulse Oximetry 91 91 91 Oxygen Delivery Method Oxygen Flow Rate 09/14/25 11:31 Pulse Rate Respiratory Rate Blood Pressure 119/73 Pulse Oximetry Oxygen Delivery Method Oxygen Flow Rate Fraction of Inspired Oxygen 50 SaO2/FiO2 Ratio 194 Oxygen Delivery Method Nasal Cannula Oxygen Flow Rate 1 Narrative Exam Narrative: Alert and oriented x3. When 1st seen he was mildly tremulous, mildly short of breath and distracted. On his 2nd visit today he was back to baseline without significant tremor or dyspnea. Heart is regular rate and rhythm without murmur. Lungs have tight airflow and wheezing bilaterally. Extremities have no ankle edema. Objective Labs 09/14/25 07:05 09/13/25 22:30 Labs: Laboratory Results - last 24 hr 09/13/25 09/13/25 09/14/25 22:30 23:26 00:34 WBC 8.3 RBC 5.06 Hgb 15.7 Hct 44.4 MCV 87.7 MCH 31.0 MCHC 35.3 RDW 13.2 Plt Count 356 Neut % (Auto) 34.0 L Lymph % (Auto) 49.0 H [place] % (Auto) 10.5 Eos % (Auto) 6.0 H Baso % (Auto) 0.5 Neut # (Auto) 2800 Lymph # (Auto) 4000 [place] # (Auto) 900 Eos # (Auto) 500 H Baso # (Auto) 0 PT 12.1 INR 1.1 APTT 24 L D-Dimer 549 H Sodium 136 L Potassium 3.3 L Chloride 97 L Carbon Dioxide 30 BUN 16 Creatinine 0.83 Estimated GFR > 60 BUN/Creatinine Ratio 19.3 Glucose 152 H Lactate 1.7 Calcium 8.8 Magnesium 1.9 Total Bilirubin 0.3 AST 27 ALT 25 Alkaline Phosphatase 86 Total Creatine Kinase 67 Troponin I < 0.012 NT-Pro-B Natriuret Pep 40 Total Protein 7.7 Albumin 4.3 Globulin 3.4 Albumin/Globulin Ratio 1.3 Lipase 66 Procalcitonin < 0.030 Chlamy pneumoniae PCR Not detected Adenovirus (PCR) Not detected B. pertussis DNA (PCR) Not detected B.parapertussis DNA PCR Not detected Coronavirus OC43 (PCR) Not detected Coronavirus HKU1 (PCR) Not detected Coronavirus 229E (PCR) Not detected SARS-CoV-2 (PCR) Not detected Coronavirus NL63 (PCR) Not detected Human Metapneumovir PCR Not detected Influenza Type A (PCR) Not detected Influenza Type B (PCR) Not detected M. pneumoniae (PCR) Not detected Parainfluenza 1 (PCR) Not detected Parainfluenza 2 (PCR) Not detected Parainfluenza 3 (PCR) Not detected Parainfluenza 4 (PCR) Not detected RSV (PCR) Not detected Entero/Rhino (PCR) Not detected 09/14/25 07:05 WBC 8.9 RBC 4.61 Hgb 14.5 Hct 40.2 L MCV 87.1 MCH 31.4 MCHC 36.0 RDW 13.3 Plt Count 295 Neut % (Auto) 90.4 H D Lymph % (Auto) 6.9 L D [place] % (Auto) 2.0 L Eos % (Auto) 0.3 L Baso % (Auto) 0.4 Neut # (Auto) 8100 H Lymph # (Auto) 600 L [place] # (Auto) 200 Eos # (Auto) 0 Baso # (Auto) 0 PT INR APTT D-Dimer Sodium Potassium Chloride Carbon Dioxide BUN Creatinine Estimated GFR BUN/Creatinine Ratio Glucose Lactate Calcium Magnesium Total Bilirubin AST ALT Alkaline Phosphatase Total Creatine Kinase Troponin I NT-Pro-B Natriuret Pep Total Protein Albumin Globulin Albumin/Globulin Ratio Lipase Procalcitonin Chlamy pneumoniae PCR Adenovirus (PCR) B. pertussis DNA (PCR) B.parapertussis DNA PCR Coronavirus OC43 (PCR) Coronavirus HKU1 (PCR) Coronavirus 229E (PCR) SARS-CoV-2 (PCR) Coronavirus NL63 (PCR) Human Metapneumovir PCR Influenza Type A (PCR) Influenza Type B (PCR) M. pneumoniae (PCR) Parainfluenza 1 (PCR) Parainfluenza 2 (PCR) Parainfluenza 3 (PCR) Parainfluenza 4 (PCR) RSV (PCR) Entero/Rhino (PCR) [facility] Medical History (Updated 09/14/25 @ 06:17 by Carmelo Young MD) Atypical pneumonia (~08/2025) Wears glasses Surgical History Anesthesia [place] teeth removed (~1980) History of knee surgery (~1974) Family History Father History of heart disease Mother Diabetes mellitus Social History household members: significant other and other Tobacco: How many years used: 10 second hand exposure: No alcohol intake: current substance use type: does not use Discharge Plan Discharge Plan Patient Disposition: Home Provider Discharge Comment: Follow up with Dr. Mancini in 1 week. Discharge orders & Medications Prescriptions: New azithromycin 250 mg tablet See Rx Instructions .ROUTE .COMPLEX Qty: 6 0RF Rx Instructions: For 250 mg dose pack: take 500 mg today (day 1), then 250 mg for 4 days (days 2-5) prednisone 20 mg tablet 20 mg PO DAILY Qty: 30 0RF Rx Instructions: Take 2 tabs daily for 5 days and then continue 1 tab per day ongoing. Continued albuterol sulfate 90 mcg/actuation HFA aerosol inhaler 2 puff inhalation Q4-6H PRN (Reason: shortness of breath or wheezing) Qty: 8.5 3RF multivitamin Tablet 1 tab PO DAILY Follow up/Referrals: Gaby Mancini DO [Primary Care Provider, Medical] Visit Report/Discharge Packet Instructions: DI for Chronic Obstructive Pulmonary Disease, Azithromycin Stand Alone Forms: Patient Portal/API, Stroke Signs & Symptoms Discharge Data Primary Care Provider: Gaby Mancini
== END 2025-09-14 12:00 | disposition home or self-care (01) | DRG 190 ==
LOC: ED 22:10 → AC 09-14 02:33
PROVIDERS: Admitting Provider Internal Medicine; Emergency Provider Family Medicine; PCP Family Medicine; Referring Provider Family Medicine; Visit Provider Internal Medicine
DX: J44.1 Chronic obstructive pulmonary disease with (acute) exacerbation (principal); J18.9 Pneumonia, unspecified organism; J96.01 Acute respiratory failure with hypoxia; J45.901 Unspecified asthma with (acute) exacerbation; J44.0 Chronic obstructive pulmonary disease with (acute) lower respiratory infection; J20.9 Acute bronchitis, unspecified; Z87.891 Personal history of nicotine dependence
CPT/HCPCS: 36415; 71045; 71275; 80053; 82550; 83605; 83690; 83735; 83880; 84145; 84484; 85025; 85379; 85610; 85730; 87040; 87633; 94640; 94660; 96365; 96375; 99285; J0696; J1720; J2919; J3475; J7050; J7060; Q9967